=== PATIENT | male | born 1990 | race Asian ===

== ENCOUNTER 2022-03-02 10:15 | Outpatient (REF) | payer OTHER, SELFPAY ==
[2022-03-02 11:38] LABS: COVID-19 Test Positive (Negative); IDNOW Serial# 16C4AD1C
== END 2022-03-02 10:16 | disposition home or self-care (01) ==
LOC: HO.LAB 10:15
PROVIDERS: Visit Provider Internal Medicine
DX: Z20.822 Contact with and (suspected) exposure to COVID-19 (principal)
CPT/HCPCS: 87635; C9803

== ENCOUNTER 2024-03-17 19:34 | Emergency (ER) | payer OTHER, SELFPAY ==
--- NOTE | 2024-03-17 | ECG_ITS ---
Test Reason : ABD PAIN Blood Pressure : / mmHG Vent. Rate : 051 BPM Atrial Rate : 051 BPM P-R Int : 162 ms QRS Dur : 100 ms QT Int : 492 ms P-R-T Axes : 033 056 051 degrees QTc Int : 453 ms Sinus bradycardia Otherwise normal ECG No previous ECGs available Referred By: Camelia Carrillo Electronically Signed By:KARYN CARRILLO
--- NOTE | ~2024-03-17 | CT_ITS ---
EXAMINATION: CT ABDOMEN AND PELVIS WITH CONTRAST CLINICAL INFORMATION: Pain. COMPARISON: None available. TECHNIQUE: Multidetector volumetric images were obtained from the superior aspect of the liver through the pubic symphysis following administration 85 mL of Omnipaque 350 intravenous contrast. Sagittal and coronal reformatted images were obtained on the technologist's workstation. Oral contrast: No This CT examination was performed using dose optimization techniques as appropriate, variously including the following: *Automated exposure control *Adjustment of mA and/or kV according to patient size (this includes techniques or standardized protocols for targeted exams where dose is matched to indication/reason for exam; i.e. extremities or head) *Use of iterative reconstruction technique DLP: 524 mGy-cm FINDINGS: LUNG BASES: The visualized lung bases are unremarkable. LIVER, GALLBLADDER, AND BILIARY TREE: The liver is normal in size, shape, and attenuation. No focal hepatic lesion or biliary ductal dilatation is present. A single small gallstone is noted within a nondistended gallbladder. PANCREAS: Unremarkable. SPLEEN: Unremarkable. ADRENAL GLANDS: Unremarkable. KIDNEYS AND URETERS: The kidneys are normal in size, shape, and attenuation. There is right perinephric stranding/fluid. There is mild right hydronephrosis and hydroureter extending into the pelvis to the level of a 3.5 to 4 mm distal right ureteric calculus. BLADDER: Unremarkable. GASTROINTESTINAL TRACT: The small and large bowel are unremarkable. The appendix is unremarkable. ABDOMINAL WALL: No significant hernia is appreciated. LYMPH NODES: Normal. VASCULAR: Unremarkable. PELVIC VISCERA: Unremarkable. OSSEOUS STRUCTURES: Unremarkable. CT/CT abdomen pelvis w IV con IMPRESSION: 1. There is a 3.5 to 4 mm distal right ureteric calculus with associated mild right hydronephrosis and hydroureter. 2. Cholelithiasis. Fleischner guidelines were followed. Electronically signed by: John Goldstein MD 03/18/2024 12:43 AM EDT
[2024-03-17 19:39] VITALS: BP 170/88; PULSE 55
[2024-03-17 19:41] VITALS: BP 170/88; PULSE 58; RESP 17; TEMP 36.4; O2SAT 100
[2024-03-17 19:43] VITALS: BMI 29.2
--- NOTE | 2024-03-17 19:49 | ED.ABDPAIN ---
HPI - Abdominal Pain General Chief Complaint: Abdominal Pain Stated Complaint: RLQ pain 04/03 n/v Time Seen by Provider: 03/17/24 19:40 Source: patient and EMS Mode of arrival: EMS Limitations: no limitations History of Present Illness ED Provider: BEKA HPI narrative: 33 yo male with no PMH and no prior surgeries started with RLQ pain and then an hour or so later started to vomit. No diarrhea. He feels terrible. States this has never happened before. He denies food exposures or sick contacts. He was found to be bradycardic and diaphoretic by EMS. He denies fevers. No issues or change with urination MD elicited complaint: abdominal pain Pertinent past history: none Onset (ago): day(s) (4pm today) Pain Consistency: constant Location: RLQ Severity: severe Quality: stabbing Radiation: none Migration to: no migration Exacerbating factors: movement Relieving factors: nothing Associated symptoms: nausea, vomiting and chills Related Data Previous Rx's ?Medication ?Instructions ?Recorded morphine 15 mg immediate release 15 mg PO Q4-6H PRN pain #18 tabs 03/18/24 tablet ondansetron 4 mg disintegrating 4 mg PO Q8H PRN nausea and 03/18/24 tablet vomiting #20 tabs tamsulosin 0.4 mg capsule 0.4 mg PO DAILY 7 days #7 caps 03/18/24 Allergies Allergy/AdvReac Type Severity Reaction Status Date / Time No Known Allergies Allergy Verified 03/17/24 19:46 Review of Systems Review of Systems Constitutional : No Weight loss, No Fever, No Chills ENT/Mouth : No sore throat, No Rhinorrhea Eyes: No Swelling, No Redness Cardiovascular : No Chest Pain, No SOB, No Edema Respiratory : No Cough, No Sputum, No Wheezing Gastrointestinal : Positive Nausea, Positive Vomiting, no Diarrhea, positive abdominal Pain, No Hematochezia, No Melena Genitourinary : No Dysuria, No Urinary Frequency, No Hematuria, No Urgency Musculoskeletal : No joint pain, No Myalgias, No Joint Swelling Skin : No Skin Lesions, No rash Neuro : No Weakness, No Numbness, No Dizziness, No Headache Psych : No Anxiety/Panic, No Depression All other systems reviewed and are negative. [facility] Past Medical History Attestation statement: The following information was validated with the patient. Source: old records reviewed Medical History (Updated 03/18/24 @ 01:36 by Camelia Carrillo DO) No pertinent past medical history Social History Social History Smoked in Last 30 Days: No Use of substances other than those prescribed or required for medical reasons: Yes Substance Use Type: Marijuana Substance Use Frequency: Chronic Longstanding Advance Directives: No Advance Directives Information Provided: No Do you have a plan to hurt others: No Plan Physical Exam ED Vital Signs: Vital Signs - 24 hr 03/17/24 19:41 03/17/24 21:24 03/17/24 21:57 Temperature 97.5 F 97.5 F 98.1 F Pulse Rate 58 62 76 Respiratory Rate 17 16 29 H Blood Pressure 170/88 H 149/76 H 162/89 H Pulse Oximetry 100 98 96 Oxygen Delivery Method Room Air Room Air Room Air 03/17/24 22:16 03/17/24 22:38 Temperature 97.9 F 97.9 F Pulse Rate 62 64 Respiratory Rate 17 17 Blood Pressure 169/88 H 143/93 H Pulse Oximetry 98 98 Oxygen Delivery Method Room Air Room Air BMI result Body Mass Index 29.2 Appearance: Alert. Oriented X3. appears ill and uncomfortable mild acute distress. Eyes: Pupils equal, round and reactive to light. ENT: Pharynx dry MM Neck: Normal inspection. Neck supple. CVS: Normal heart rate and rhythm. Pulses normal. Respiratory: No respiratory distress. Breath sounds normal. Abdomen: Soft and moderate RLQ no rebound Skin: Skin cool and clammy. pale skin color. Extremities: No lower extremity edema. Neuro: Oriented X 3. No motor deficit. No sensory deficit. Course Course Course Narrative: possible infection suspected IV ceftriaxone ordered 916pm Medical Decision Making Medical Decision Making MDM Narrative: 33 yo male with no sig PMH here with c/o RLQ pain n/v no diarrhea at this time will need labs, CT scan for RLQ pain, IVF x 2L, IV toradol and morphine for pain. He denies travel or food exposures. Possible renal colic vs appendicitis Differential Diagnosis Differential Diagnoses: The differential diagnosis associated with the presentation includes renal colic, colitis, appendicitis, THC induced hyperemesis syndrome Admission/Observation Consideration of admission/observation: Escalation of care including admission/observation considered tolerating PO pain resolved after medications at this time stable for DC Lab Data MDM Lab Attestation statement: I reviewed the patient's lab results. 03/17/24 19:52 03/17/24 19:52 Labs: Lab Results 03/17/24 03/17/24 03/17/24 Range/Units 19:52 20:48 23:01 WBC 16.2 H (4.8-10.8) X10*3/uL RBC 5.41 (4.60-5.80) X10*6/uL Hgb 16.2 (14.0-18.0) g/dl Hct 46.5 (42.0-52.0) % MCV 86.0 (80.0-98.0) fL MCH 29.9 (27.0-33.0) pg MCHC 34.8 (31.0-36.0) g/dl RDW 13.0 (11.0-16.0) % Plt Count 326 (160-400) X10*3/uL MPV 9.3 L (9.4-12.4) fL Immature Gran % (Auto) 0.4 (0.0-0.4) % Neut % (Auto) 88.4 H (45-73) % Lymph % (Auto) 7.9 L (20-40) % Lee % (Auto) 2.9 (2-11) % Eos % (Auto) 0.0 (0-4) % Baso % (Auto) 0.4 (0-2) % Lymph # (Auto) 1.3 (1.2-4.9) X10*3/uL Lee # (Auto) 0.5 (0.1-1.2) X10*3/uL Eos # (Auto) 0.0 (0.0-0.4) X10*3/uL Baso # (Auto) 0.1 (0.0-0.2) X10*3/uL Abs Immat Gran (auto) 0.07 H (0.00-0.03) X10*3/uL Absolute Neuts (auto) 14.4 H (2.0-8.3) x10*3/uL Absolute Nucleated RBC 0.000 (0.0-0.012) X10*3/uL Nucleated RBC % (auto) 0.0 (0.0-0.2) /100WBC Sodium 139 (135-145) mmol/L Potassium 3.5 (3.3-5.1) mmol/L Chloride 107 (96-108) mmol/L Carbon Dioxide 19 L (22-29) mmol/L Anion Gap 17 (12-20) BUN 11 (9-16) mg/dL Creatinine 1.43 H (0.5-1.4) mg/dL Estim Creat Clear Calc 76.3 Estimated GFR 57 Random Glucose 141 H (60-115) mg/dL Lactic Acid 2.2 H* (0.5-2.0) mmol/L Lactic Acid F/U @ 2Hr 1.1 (0.5-2.0) mmol/L Calcium 9.8 (8.4-10.2) mg/dL Magnesium 1.9 (1.6-2.6) mg/dL Total Bilirubin 0.8 (0.0-1.0) mg/dL Direct Bilirubin 0.2 (0.0-0.5) mg/dL AST 22 (5-37) U/L ALT 24 (0-40) U/L Alkaline Phosphatase 70 (39-117) U/L Total Protein 7.7 (6.5-8.0) g/dL Albumin 4.7 (3.5-5.0) g/dL Lipase 14 (8-78) U/L Urine Color Yellow Urine Appearance Clear Urine pH 7.0 (5.0-9.0) Ur Specific [place] 1.010 (1.005-1.025) Urine Protein Negative (Neg-Trace) mg/dL Urine Glucose (UA) Negative (Negative) mg/dL Urine Ketones 40 (Negative) mg/dL Urine Blood Large (3+) H (Negative) Urine Nitrite Negative (Negative) Ur Leukocyte Esterase Negative (Negative) Urine RBC >20 H (0-2) /HPF Urine WBC 0-5 (0-5) /HPF Ur Squamous Epith Cells 0-2 (0-2) /HPF Urine Bacteria None Seen (None Seen) Hyaline Casts 0-2 (0-2) /LPF Independent Interpretation I performed an independent interpretation of an: EKG and CT Scan (+ distal ureter stone) Interpretation: Rate: 51 Rhythm: sinus bradycardia [place]: normal Normal P waves. Normal ALFREDO. Normal QRS complex. ST T wave : normal no CHELLY qTC: 453 prior studies: no acute ischemia The study has been interpreted contemporaneously by me. . Radiology Impression Discussion of test interpretation with radiology: I have reviewed the radiologist's reading. Prescription Management I considered prescription management with: Pain Medication and Other Medications Administered Discontinued Medications Generic Name Dose Route Start Last Admin Trade Name Freq PRN Reason Stop Dose Admin Diphenhydramine HCl 25 mg 03/17/24 20:34 03/17/24 20:49 Diphenhydramine Hcl 50 Mg/Ml Vial IVPUSH 03/17/24 20:35 25 mg ONCE ONE Administration Hydromorphone HCl 1 mg 03/17/24 21:46 03/17/24 21:55 Hydromorphone Hcl 1 Mg/Ml Syringe IVPUSH 03/17/24 21:47 1 mg ONCE ONE Administration Protocol Sodium Chloride 1,000 mls @ 999 mls/hr 03/17/24 19:48 03/17/24 22:00 Ns IV 03/17/24 20:48 Infused .Q1H1M ONE Infusion Sodium Chloride 1,000 mls @ 999 mls/hr 03/17/24 19:53 03/17/24 22:00 Ns IV 03/17/24 20:53 Infused .Q1H1M ONE Infusion Ceftriaxone Sodium 1 gm/ 50 mls @ 100 mls/hr 03/17/24 21:16 03/17/24 22:01 Sodium Chloride IV 03/17/24 21:45 Infused ONCE ONE Infusion Iohexol 85 ml 03/17/24 22:17 03/17/24 22:18 Iohexol 350 Mg/Ml 100 Ml Infus..Btl IV 03/17/24 22:18 85 ml ONCE ONE Administration Metoclopramide HCl 10 mg 03/17/24 20:34 03/17/24 20:49 Metoclopramide Hcl 10 Mg/2 Ml Vial IVPUSH 03/17/24 20:35 10 mg ONCE ONE Administration Morphine Sulfate 4 mg 03/17/24 19:53 03/17/24 20:06 Morphine Sulfate 4 Mg/Ml Cartridge IVPUSH 03/17/24 19:54 4 mg ONCE ONE Administration Protocol Ondansetron HCl 4 mg 03/17/24 19:53 03/17/24 20:06 Ondansetron Hcl 4 Mg/2 Ml Vial IVPUSH 03/17/24 19:54 4 mg ONCE ONE Administration Critical Care Time Critical Care Time Critical Care Time: Yes Total Critical Care Time: 60 Attestation: repeat labs, IV dilaudid and morphine with improvement in pain, IVF x 2L I attest to this time spent taking care of the patient Discharge Plan Discharge Clinical Impression: Abdominal pain, Ureterolithiasis, Acute dehydration Patient Disposition: Home, Self-Care Instructions: Dehydration (ED), Abdominal Pain (ED), Ureteral Stones (ED) Additional Instructions: stay hydrated drink plenty of fluids. if you feel you have not passed stone in 48 hours call to schedule appointment with urologist return for fevers, vomiting, severe pain or any other concerns CT/CT abdomen pelvis w IV con IMPRESSION: 1. There is a 3.5 to 4 mm distal right ureteric calculus with associated mild right hydronephrosis and hydroureter. 2. Cholelithiasis. Prescriptions: New tamsulosin 0.4 mg capsule 0.4 mg PO DAILY 7 Days Qty: 7 0RF morphine 15 mg tablet 15 mg PO Q4-6H PRN (Reason: pain) Qty: 18 0RF Rx Instructions: partial fill okay; Partial Fill upon patient request. ondansetron 4 mg tablet,disintegrating 4 mg PO Q8H PRN (Reason: nausea and vomiting) Qty: 20 0RF Referrals: [facility] [Provider Group] Print Language: Congolese
[2024-03-17 19:56] LABS: MANUAL DIFF FLAG NO
[2024-03-17 19:58] LABS: Basophils Absolute Auto 0.1 X10*3/uL (0.0-0.2); Basophils Percent Auto 0.4 % (0-2); Hematocrit 46.5 % (42.0-52.0); Hemoglobin 16.2 g/dl (14.0-18.0); Imm Gran Abs Auto 0.07 X10*3/uL (0.00-0.03); Imm Gran Pct Auto 0.4 % (0.0-0.4); Lymphocytes Absolute Auto 1.3 X10*3/uL (1.2-4.9); Lymphocytes Percent Auto 7.9 % (20-40); Mean Corpuscular HGB Conc 34.8 g/dl (31.0-36.0); Mean Corpuscular Hemoglobin 29.9 pg (27.0-33.0); Mean Platelet Volume 9.3 fL (9.4-12.4); Monocytes Absolute Auto 0.5 X10*3/uL (0.1-1.2); Monocytes Percent Auto 2.9 % (2-11); Neutrophils Absolute Auto 14.4 x10*3/uL (2.0-8.3); Neutrophils Percent Auto 88.4 % (45-73); Platelet Count 326 X10*3/uL (160-400); Red Blood Count 5.41 X10*6/uL (4.60-5.80); White Blood Count 16.2 X10*3/uL (4.8-10.8)
[2024-03-17] MEDS: 0.9 % Sodium Chloride 1,000 ML 999 ML IV ×2 (19:59→20:06)
--- OUTSIDE RECORDS SUMMARY | 2024-03-17 20:04 | XMS_ITS | Continuity of Care Document ---
Author Organization [facility] Fredi Address [address] [place] [address]- Care Team Providers Care Crane Rigger Name Role Phone Justin ALPHONSO, Bita Swift Primary Care Physician Encounter [facility] [place] Date(s): 11/15/20 - 12/15/20 [facility] Adult [address] [place] [address]- Allergies, Adverse Reactions, Alerts Substance Reaction Severity Status NKA Active Immunizations Given and Recorded Vaccine Date Status Refusal Reason SARS-CoV-2 (COVID-19) mRNA BNT-162b2 vac 10/31/20 Recorded SARS-CoV-2 (COVID-19) mRNA BNT-162b2 vac 10/08/20 Recorded influenza virus vaccine, inactivated 04/12/17 Kevin rded tetanus/diphtheria/pertussis, acel(Tdap) 09/22/14 Given Medications FLUoxetine 20 mg oral capsule 3, capsule, By Mouth, Daily, # 270 capsule, Refills 0, Tot. Refills 0, Maintenance, 10/14/20 11:41:00 EDT, Route to Pharmacy Electronically, [facility]/pharmacy #[id number], 170.5, cm, 09/24/20 9:20:00 EDT, Height Start Date: 10/14/20 Stop Date: 01/12/21 Status: Ordered Wellbutrin XL 150 mg/24 hours oral tablet, extended release 1 tablet = 150 mg, By Mouth, Every 24 hours, # 90 tablet, 3 Refills, Maintenance, 01/19/20 7:17:00 EDT, ER Tablet, [facility]/pharmacy #[id number], 170.5, cm, 01/19/20 7:04:00 EDT, Height Start Date: 01/19/20 Status: Ordered Problem List Condition Effective Dates Status Health Status Inform ant Overweight (BMI 25.0-29.9)(Confirmed) Active History of vitamin D deficiency(Confirmed) Active Anxiety and depression(Confirmed) Active Social History Social History Type Response Smoking Status Never smoker; Tobacc o user in household: No entered on: 01/14/14 Sex
--- OUTSIDE RECORDS SUMMARY | 2024-03-17 20:04 | XMS_ITS | Continuity of Care Document ---
Author Organization [facility] Fred[facility] Address [address] [place] [address]- Care Team Providers Care Chef De Froid Name Role Phone Justin ALPHONSO, Bita Swift Primary Care Physician [phone] [place] [facility] [place]20 [facility] Adult [address] [place] [address]- Allergies, Adverse Reactions, Alerts Substance Reaction Severity Status NKA Active Immunizations Given and Recorded Vaccine Date Status Refusal Reason influenza virus vaccine, inactivated 04/12/17 Kevin rded tetanus/diphtheria/pertussis, acel(Tdap) 09/22/14 Given Medications FLUoxetine 20 mg oral capsule 3, capsule, By Mouth, Daily, # 270 capsule, Refills 0, Tot. Refills 0, Maintenance, 10/14/20 11:41:00 EDT, Route to Pharmacy Electronically, [facility]/pharmacy #[id number], 170.5, cm, 09/24/20 9:20:00 EDT, Height Start Date: 10/14/20 Stop Date: 01/12/21 Status: Ordered Wellbutrin XL 150 mg/24 hours oral tablet, extended release 1 tablet = 150 mg, By Mouth, Every 24 hours, # 90 tablet, 3 Refills, Maintenance, 01/19/20 7:17:00 EDT, ER Tablet, [facility]/pharmacy #[id number], 170.5, cm, 01/19/20 7:04:00 EDT, Height Start Date: 01/19/20 Status: Ordered Problem List Condition Effective Dates Status Health Status Inform ant Overweight (BMI 25.0-29.9)(Confirmed) Active History of vitamin D deficiency(Confirmed) Active Anxiety and depression(Confirmed) Active Social History Social History Type Response Smoking Status Never smoker; Tobacc o user in household: No entered on: 01/14/14 Sex
--- OUTSIDE RECORDS SUMMARY | 2024-03-17 20:04 | XMS_ITS | Continuity of Care Document ---
Author Organization [facility] Fredi Address [address] [place] [address]- Care Team Providers Care Sales Support Engineer Name Role Phone Justin WERNER, Bita Swift Primary Care Physician Encounter [facility] [place] Date(s): 08/08/23 - 08/15/23 [facility] Adult [address] [place] [address]- Encounter Diagnosis Annual physical exam(Discharge Diagnosis) - 08/07/23 Anxiety and depression(Discharge Diagnosis) - 08/07/23 History of vitamin D deficiency(Discharge Diagnosis) - 08/07/23 Overweight (BMI 25.0-29.9)(Discharge Diagnosis) - 08/07/23 Attending Physician: Bita Anderson NP Referring Physician: Odell Askew MD Allergies, Adverse Reactions, Alerts No Known Allergies Immunizations Given and Recorded Vaccine Date Status Refusal Reason [id number] 12y+ bivalent booster vax 1 08/07/22 Given influenza virus vaccine, inactivated 2 08/07/22 Gi otf influenza virus vaccine, inactivated 04/12/17 Kevin rded SARS-CoV-2 (COVID-19) mRNA BNT-162b2 vac 10/31/20 Recorded SARS-CoV-2 (COVID-19) mRNA BNT-162b2 vac 10/08/20 Recorded tetanus/diphtheria/pertussis, acel(Tdap) 09/22/14 Given 1Result Comment: COVID [facility]#[id number] 2Result Comment: Flu [facility]#[id number] Medications buPROPion 150 mg/24 hours (XL) oral tablet, extended release 1 tablet = 150 mg, By Mouth, Daily, # 90 tablet, 1 Refills, Maintenance, 08/08/23 10:30:00 EST, [facility] #[id number], 1 tablet By Mouth Daily,x90 days, 170.6, cm, 08/08/23 10:18:00 EST, Height Start Date: 08/08/23 Stop Date: 02/04/24 Status: Ordered FLUoxetine 20 mg oral capsule 60 mg, 3, capsule, By Mouth, Daily, Refills 0, Maintenance, 08/07/23 23:38:00 EST, Partial fill upon patient request if the prescription is for a schedule II opioid drug. Start Date: 08/07/23 Status: Ordered Multivitamin Daily, 0 Refills, Maintenance, 05/10/21 8:15:00 EST Start Date: 05/10/21 Status: Ordered Vitamin D3 5000 intl units oral tablet 1 tablet = 125 mcg, By Mouth, Daily, # 90 tablet, 3 Refills, Maintenance, 08/08/22 6:58:00 EST, Tablet, [facility]/pharmacy #[id number], 172.3, cm, 08/07/22 10:13:00 EST, Height Start Date: 08/08/22 Stop Date: 08/03/23 Status: Ordered Problem List Condition Confirmation Course Effective Dates Status Health St atus Informant Overweight (BMI 25.0-29.9) Confirmed Active History of vitamin D deficiency Confirmed Active Anxiety and depression Confirmed Active Diagnosis Diagnosis Type Effective Dates Health Status Clinical Service Informant Annual physical exam Discharge Diagnosis 08/07/23 Anxiety and depression Discharge Diagnosis 08/07/23 History of vitamin D deficiency Discharge Diagnosis 08/07/23 Overweight (BMI 25.0-29.9) Discharge Diagnosis 08/07/23 Vital Signs Most recent to oldest [Reference Range]: 1 2 Height 170.6 cm (08/08/23 10:30 AM) 170.6 cm (08/08/23 10:18 AM) Weight 82.5 kg (08/08/23 10:18 AM) Oxygen Saturation [94-100 %] 98 % (08/08/23 10:18 AM) Pulse Rate [55-90 bpm] 78 bpm (08/08/23 10:18 AM) Body Mass Index [18.5-24.99 kg/m2] 28.35 kg/m2 *H* (08/08/23 10:18 AM) Blood Pressure [90-138/55-84 mm Hg] 122/ 80mm Hg (08/08/23 10:30 AM) 123/85mm Hg (08/08/23 10:18 AM) Temperature [96.8-100.4 DegF] 97.7 DegF (08/08/23 10:18 AM) Mode of Delivery (Oxygen) Room air (08/08/23 10:18 AM) Blood pressure sites Arm, left (08/08/23 10:30 AM) Arm, left (08/08/23 10:18 AM) Temperature Route Oral (08/08/23 10:18 AM) Weight Obtained Via Standing scale (08/08/23 10:18 AM) Social History Social History Type Response Smoking Status Never smoker; Tobacc o user in household: No entered on: 01/14/14 Sex Note * Avril Bender: PERFORM, SIGN, VERIFY Event Display: Patient Education/Instruction Authored Date: [id number] [facility] *[facility] So Cristopher Ramos Clinical Summary Name TIFFANIE CHAVEZ Age 33 Years 1990 [facility]CP [id number] Visit Date 08/08/2023 10:14:00 Additional Instructions: Scheduled Appointments?? Future Appointments ?No Future Appointments Scheduled Follow-Up Instructions ?? With: Address: When: Bita Anderson NP In 1 year Diagnosis Encounter for general adult medical examination without abnormal findings; Overweight; Personal history of other endocrine, nutritional and metabolic disease; Other specified anxiety disorders Medications: Please continue your medications until treatment is completed or stopped by your provider. Discuss any questions related to medications with your provider. New Medications [facility] #[id number], [address], [place] [id number], [phone] BuPROpion (buPROPion 150 mg/24 hours (XL) oral tablet, extended release) 1 tab(s) Oral Daily for 90Days. Refills: 1. Next Dose: Medications to Continue Taking That Have Changed These medications were not printed or sent to your pharmacy - Fluoxetine (FLUoxetine 20 mg oral capsule) 3 capsule Oral Daily. Next Dose: Medications to Continue with No Changes These medications were not printed or sent to your pharmacy Cholecalciferol (Vitamin D3 5000 intl units oral tablet) 1 tab(s) Oral Daily for 90 Days. Refills: 3. Next Dose: Multivitamin Daily. Next Dose: Allergy Info:?? NKA Medications Given This Visit Future Orders ?Vitamin D 25 Hydroxy Level? Order Date:08/08/23?- Complete on or after?08/08/23 ?Comprehensive Metabolic Panel? Order Date:08/08/23?- Complete on or after?08/08/23 ?Direct LDL? Order Date:08/08/23?- Complete on or after?08/08/23 Vital Signs Height 170.6 cm Weight 82.5 kg BMI 28.35 kg/m2 Blood Pressure 123 mm Hg/85 mm Hg Temperature 97.7 DegF Pulse Rate 78 bpm Respiratory Rate 02 Sat Mode of Delivery 98 %/Room air You can now view a summary of your hospital visit from the comfort of your home through a free online portal called [employer]. [employer] is a website that allows you to securely view your medical information including discharge summary, medications and follow-up visits. ??You can alsosend a secure electronic message to your doctor???s office to request appointments, renew medications or just ask a question. You can enroll at [email or web address] or register during your next office visit. Disclaimer:?? The information provided is of a general nature and is intended to be used in conjunction with the recommendations and advice of your health care practitioner. ??Every effort has been made to ensure that the information provided is accurate and complete at the time it is provided to you however, as your needs change, or, as new ??information becomes available, different or additional instructions may be required. If you have questions, please consult with your primary care provider or pharmacist, as appropriate. ??This information is not intended to serve as substitution for assessment and evaluation by a qualified health care provider. If you do not have a primary care provider, you may find a [facility] provider by calling [facility] at [phone]. [facility], in keeping with [facility] guidance, no longer requires face masks for staff, patientsor visitors in most situations. Similar to time spent indoors at other locations, there is the chance that you were exposed to respiratory viruses during your time with us (such as flu or COVID-19).? If you develop symptoms concerning for a viral respiratory infection, please seek testing (and treatment if indicated) from your medical provider or home test kit. For information about the plan of care including goals and instructions for your diagnosis, please see the patient education orders section of this document. Patient Education Materials?? The content of this educational material or handout may have been modified, supplemented, or adapted from its original content and format to support your individualized medical care. Prevention Guidelines, Men Ages 18 to 39 Screening tests and vaccines are an important part of managing your health. Health counseling is essential, too. Below are guidelines for these, for men ages 18 to 39. Talk with your healthcare provider to make sure you???re up-to-date on what you need. Screening Who needs it How often Alcohol misuse All men in this age group At routine exams Blood pressure All men in this age group Every 2 years if your blood pressure is less than 120/80 mm Hg; yearly if your systolic blood pressure is 120 to 139 mm Hg, or your diastolic blood pressure reading is 80 to 89 mm Hg Depression All men in this age group At routine exams Diabetes mellitus, type 2 Adults who have no symptoms but are overweight or obese and have 1 or more other risk factors for diabetes At least every 3 years Hepatitis C If at increased risk At routine exams High cholesterol or triglycerides All men ages 35 and older, and younger men at high risk for coronary artery disease At least every 5 years HIV All men At routine exams Obesity All men in this age group At routine exams Syphilis Men at increased risk for infection ??? talk with your healthcare provider At routine exams Tuberculosis Men at increased risk for infection ??? talk with your healthcare provider Check with your healthcare provider Vision All men in this age group Every 5 to 10 years if no risk factors for eye disease Vaccines1 Who needs it How often Chickenpox (varicella) All men in this age group who have no record of this infection or vaccine 2 doses; the second dose should be given at least 4 weeks after the first dose Hepatitis A Men at increased risk for infection ??? talk with your healthcare provider 2 doses given at least 6 months apart Hepatitis B Men at increased risk for infection ??? talk with your healthcare provider 3 doses over 6 months; second dose should be given 1 month after the first dose; the third dose should be given at least 2 months after the second dose and at least 4 months after the first dose Haemophilus influenzae Type B (HIB) Men at increased risk for infection ??? talk with your healthcare provider 1 to 3 doses Human papillomavirus (HPV4) All men through age 21 years Men ages 22 to 26 who are at risk 3 doses; the second dose should be given 1 to 2 months after the first dose and the third dose given 6 months after the first dose Influenza (flu) All men in this age group Once a year Measles, mumps, rubella (MMR) All men in this age group who have no record of these infections or vaccines 1 or 2 doses through age 55 Meningococcal Men at increased risk for infection ??? talk with your healthcare provider 1 or more doses Pneumococca (PCV13) and Pneumococcal (PPSV23) Men at increased risk for infection ??? talk with your healthcare provider PCV13: 1 dose ages 19 to 65 (protects against 13 types of pneumococcal bacteria) PPSV23: 1 to 2 doses through age 64, or 1 dose at 65 or older (protects against 23 types of pneumococcal bacteria) Tetanus/diphtheria/pertussis (Td/Tdap) booster All men in this age group A one-time Tdap booster after age 18, then Td every10 years Counseling Who needs it How often Diet and exercise Overweight or obese people When diagnosed, and then at routine exams Use of tobacco and the health affects it can cause All men in this age group Every visit Sexually transmitted infection prevention Men who are sexually active At routine exams Skin cancer Prevention of skin cancer in fair-skinned adults through age 24 At routine exams 1Those who are 18 years of age, who are not up-to-date on their childhood immunizations, should receive all appropriate catch-up vaccines recommended by the CDC. ?? 5024-1544 [employer]. [address] [place] [address], [place] [address]. All rights reserved. This information is not intended as a substitute for professional medical care. Always follow your healthcare professional's instructions. Patient Care team information Care Team Personnel Name: Bita Anderson NP Position: [facility] Associate Professional Member Role: PCP Address: Address: [address] [place] [address]- Care Team Related Persons Name: ISAIAH WOLFF Address: [address] [address]
--- OUTSIDE RECORDS SUMMARY | 2024-03-17 20:04 | XMS_ITS | Continuity of Care Document ---
Author Organization [facility] Fredi Address [address] [place] [address]- Care Team Providers Care Magazine Repairer Name Role Phone Justin ALPHONSO, Bita Swift Primary Care Physician [phone] Encounter [facility] [place] Date(s): 09/24/20 - 10/24/20 [facility] Adult [address] [place] [address]- Allergies, Adverse Reactions, Alerts Substance Reaction Severity Status NKA Active Immunizations Given and Recorded Vaccine Date Status Refusal Reason influenza virus vaccine, inactivated 04/12/17 Kevin rded tetanus/diphtheria/pertussis, acel(Tdap) 09/22/14 Given Medications FLUoxetine 20 mg oral capsule 3, capsule, By Mouth, Daily, # 270 capsule, Refills 0, Tot. Refills 0, Maintenance, 10/14/20 11:41:00 EDT, Route to Pharmacy Electronically, [facility]/pharmacy #[id number], 170.5, cm, 09/24/20 9:20:00 EDT, Height Start Date: 10/14/20 Stop Date: 01/12/21 Status: Ordered Wellbutrin XL 150 mg/24 hours oral tablet, extended release 1 tablet = 150 mg, By Mouth, Every 24 hours, # 90 tablet, 3 Refills, Maintenance, 01/19/20 7:17:00 EDT, ER Tablet, [facility]/pharmacy #[id number], 170.5, cm, 01/19/20 7:04:00 EDT, Height Start Date: 01/19/20 Status: Ordered Problem List Condition Effective Dates Status Health Status Inform ant Overweight (BMI 25.0-29.9)(Confirmed) Active History of vitamin D deficiency(Confirmed) Active Anxiety and depression(Confirmed) Active Social History Social History Type Response Smoking Status Never smoker; Tobacc o user in household: No entered on: 01/14/14 Sex
--- OUTSIDE RECORDS SUMMARY | 2024-03-17 20:04 | XMS_ITS | Continuity of Care Document ---
Author Organization [facility] Cristopher Fredi Address [address] [place] [address]- Care Team Providers Care Business Performance Specialist Name Role Phone Justin WELFARE ADMINISTRATOR, Bita Swift Primary Care Physician [phone] Encounter [facility] Date(s): 01/03/24 - 02/02/24 [facility] Adult [address] [place] [address]- Allergies, Adverse Reactions, Alerts No Known Allergies Immunizations Given and Recorded Vaccine Date Status Refusal Reason [id number] 12y+ bivalent booster vax 1 08/07/22 Given influenza virus vaccine, inactivated 2 08/07/22 Gi otf influenza virus vaccine, inactivated 04/12/17 Kevin rded SARS-CoV-2 (COVID-19) mRNA BNT-162b2 vac 10/31/20 Recorded SARS-CoV-2 (COVID-19) mRNA BNT-162b2 vac 10/08/20 Recorded tetanus/diphtheria/pertussis, acel(Tdap) 09/22/14 Given 1Result Comment: COVID [facility]#[id number] 2Result Comment: Flu [facility]#[id number] Medications buPROPion 150 mg/24 hours (XL) oral tablet, extended release 1 tablet, By Mouth, Daily, # 90 tablet, 1 Refills, Maintenance, 01/03/24 11:49:00 EDT, [facility] #[id number], 90, TAKE 1 TABLET BY MOUTH DAILY, 170.6, cm, 08/08/23 10:40:00 EST, Height Start Date: 01/03/24 Status: Ordered FLUoxetine 20 mg oral capsule 60 mg, 3, capsule, By Mouth, Daily, # 90 capsule, Refills 1, Tot. Refills 1, Maintenance, 01/24/24 12:04:00 EDT, Route to Pharmacy Electronically, [facility] #[id number], 170.6, cm, 08/08/23 10:40:00 EST, Height Start Date: 01/24/24 Status: Ordered Multivitamin Daily, 0 Refills, Maintenance, 05/10/21 8:15:00 EST Start Date: 05/10/21 Status: Ordered Vitamin D3 5000 intl units oral tablet 1 tablet = 125 mcg, By Mouth, Daily, # 90 tablet, 3 Refills, Maintenance, 08/08/22 6:58:00 EST, Tablet, [facility]/pharmacy #[id number], 172.3, cm, 08/07/22 10:13:00 EST, Height Start Date: 08/08/22 Stop Date: 08/03/23 Status: Ordered Problem List Condition Confirmation Course Effective Dates Status Health St atus Informant Overweight (BMI 25.0-29.9) Confirmed Active History of vitamin D deficiency Confirmed Active Anxiety and depression Confirmed Active Social History Social History Type Response Smoking Status Never smoker; Tobacc o user in household: No entered on: 01/14/14 Sex Patient Care team information Care Team Personnel Name: Bita Anderson NP Position: [facility] Associate Professional Member Role: PCP Address: Address: [address] [place] [address]- Care Team Related Persons Name: ISAIAH WOLFF Address: home [address] [place] [address]
--- OUTSIDE RECORDS SUMMARY | 2024-03-17 20:04 | XMS_ITS | Continuity of Care Document ---
Author Organization [facility] Fredi Address [address] [place] [address]- Care Team Providers Care Elementary Science Teacher Name Role Phone Justin SALESPERSON FURNITUREBita Primary Care Physician [place] [facility] [place] Date(s): 06/28/20 - 07/28/20 [facility] Adult [address] [place] [address]- Allergies, Adverse Reactions, Alerts Substance Reaction Severity Status NKA Active Immunizations Given and Recorded Vaccine Date Status Refusal Reason influenza virus vaccine, inactivated 04/12/17 Kevin rded tetanus/diphtheria/pertussis, acel(Tdap) 09/22/14 Given Medications FLUoxetine 20 mg oral capsule 3, capsule, By Mouth, Daily, # 270 capsule, Refills 1, Tot. Refills 0, Maintenance, 05/10/20 9:55:00 EST, Route to Pharmacy Electronically, [id number], 170.5, cm, 01/19/20 7:04:00 EDT, Height Start Date: 05/10/20 Status: Ordered Wellbutrin XL 150 mg/24 hours oral tablet, extended release 1 tablet = 150 mg, By Mouth, Every 24 hours, # 90 tablet, 3 Refills, Maintenance, 01/19/20 7:17:00 EDT, ER Tablet, [facility] #[id number], 170.5, cm, 01/19/20 7:04:00 EDT, Height Start Date: 01/19/20 Status: Ordered Problem List Condition Effective Dates Status Health Status Inform ant Overweight (BMI 25.0-29.9)(Confirmed) Active History of vitamin D deficiency(Confirmed) Active Anxiety and depression(Confirmed) Active Social History Social History Type Response Smoking Status Never smoker; Tobacc o user in household: No entered on: 01/14/14 Sex
--- OUTSIDE RECORDS SUMMARY | 2024-03-17 20:04 | XMS_ITS | Continuity of Care Document ---
[facility] Address [address] [place] [address]- Care Team Providers Care Compliance Monitor Name Role Phone Justin Bita WERNER Primary Care Physician Encounter [facility] [place] Date(s): 02/17/20 - 03/18/20 [facility] Adult [address] [place] [address]- [facility] Allergies, Adverse Reactions, Alerts Substance Reaction Severity Status NKA Active Immunizations Given and Recorded Vaccine Date Status Refusal Reason influenza virus vaccine, inactivated 04/12/17 Kevin rded tetanus/diphtheria/pertussis, acel(Tdap) 09/22/14 Given Medications FLUoxetine 20 mg oral capsule 60 mg, 3, capsule, By Mouth, Daily, # 270 capsule, Refills 0, Tot. Refills 0, Maintenance, 209:15:00 EDT, Route to Pharmacy Electronically, [facility]/pharmacy #[id number], 170.5, cm, 01/19/20 7:04:00 EDT,Height Start Date: 02/23/20 Status: Ordered Wellbutrin XL 150 mg/24 hours [...]
--- OUTSIDE RECORDS SUMMARY | 2024-03-17 20:04 | XMS_ITS | Continuity of Care Document ---
Author Organization [facility] Fredi Address [address] [place] [address]- Care Team Providers Care Receiving Worker Name Role Phone Justin ALPHONSO, Bita Swift Primary Care Physician Encounter [facility] [place] Date(s): 10/27/20 - 11/26/20 [facility] Adult [address] [place] [address]- Allergies, Adverse Reactions, Alerts Substance Reaction Severity [...] 10/14/20 11:41:00 EDT, Route to Pharmacy Electronically, [facility]/pharmacy #[id number], 170.5, cm, 09/24/20 9:20:00 EDT, Height Start Date: 10/14/20 Stop Date: 01/12/21 Status: Ordered Wellbutrin XL 150 mg/24 hours oral tablet, extended release 1 tablet = 150 mg, By Mouth, Every 24 hours, # 90 tablet, 3 Refills, Maintenance, 01/19/20 7:17:00 EDT, ER Tablet, [facility]/pharmacy #[id number], 170.5, cm, 01/19/20 7:04:00 EDT, Height Start Date: 01/19/20 Status: Ordered Problem List Condition Effective Dates Status Health Status Inform ant Overweight (BMI 25.0-29.9)(Confirmed) Active History of vitamin D deficiency(Confirmed) Active Anxiety and depression(Confirmed) Active Social History Social History Type Response Smoking Status Never smoker; Tobacc o user in household: No entered on: 01/14/14 Sex
--- OUTSIDE RECORDS SUMMARY | 2024-03-17 20:04 | XMS_ITS | Continuity of Care Document ---
Author Organization [facility] ter Address [address] [place] [address]- Care Team Providers Care Weatherization Technician Name Role Phone Bita Anderson NP Primary Care Physician [phone] Encounter [facility] [place] Date(s): 08/08/23 - 08/08/[address] [address] Attending Physician: Bita Anderson NP Allergies, Adverse Reactions, Alerts No Known Allergies Immunizations Given and Recorded Vaccine Date Status Refusal Reason [id number] 12y+ bivalent booster vax 1 08/07/22 Given influenza virus vaccine, inactivated 2 08/07/22 Gi otf influenza virus vaccine, inactivated 04/12/17 Kevin rded SARS-CoV-2 (COVID-19) mRNA BNT-162b2 vac 10/31/20 Recorded SARS-CoV-2 (COVID-19) mRNA BNT-162b2 vac 10/08/20 Recorded tetanus/diphtheria/pertussis, acel(Tdap) 09/22/14 Given 1Result Comment: COVID [facility]#[id number] 2Result Comment: Flu [facility]#[id number] Medications buPROPion 150 mg/24 hours (XL) oral tablet, extended release 1 tablet = 150 mg, By Mouth, Daily, # 90 tablet, 1 Refills, Maintenance, 08/08/23 10:30:00 EST, [facility] #[id number], 1 tablet By Mouth Daily,x90 days, 170.6, [...] 3 Refills, Maintenance, 08/08/22 6:58:00 EST, Tablet, [id number], 172.3, cm, 08/07/22 10:13:00 EST, Height [...] Team Personnel Name: Bita Anderson NP Position: [facility]O Associate Professional Member Role: PCP Address: Address: [address] [place] [address]- Care Team Related Persons Name: ISAIAH WOLFF Address: home [address] [place] [address]
--- OUTSIDE RECORDS SUMMARY | 2024-03-17 20:04 | XMS_ITS | Continuity of Care Document ---
Author Organization [facility] Fredi Address [address] [place] [address]- Care Team Providers Care Charge Account Clerk Name Role Phone Justin Bita WERNER Primary Care Physician Encounter [facility] [place] Date(s): 05/10/21 - 06/09/21 [facility] Adult [address] [place] [address]- Attending Physician: Admtr, Ar8 Admitting Physician: Admtr, Ar8 Referring Physician: Admtr, Ar8 Allergies, Adverse Reactions, Alerts Substance Reaction Severity Status NKA Active Immunizations Given and Recorded Vaccine Date Status Refusal Reason SARS-CoV-2 (COVID-19) mRNA BNT-162b2 vac 10/31/20 Recorded SARS-CoV-2 (COVID-19) mRNA BNT-162b2 vac 10/08/20 Recorded influenza virus vaccine, inactivated 04/12/17 Kevin rded tetanus/diphtheria/pertussis, acel(Tdap) 09/22/14 Given Medications buPROPion 150 mg/24 hours (XL) oral tablet, extended release 1 tablet = 150 mg, By Mouth, Every 24 hours, # 90 tablet, 2 Refills, Maintenance, 05/10/21 8:17:00 EST, XL Tablet, [id number], 1 tablet By Mouth Every 24 hours,x90 days, 170.5, cm, 05/10/21 8:02:00 EST, Height Start Date: 05/10/21 Stop Date: 02/04/22 Status: Ordered FLUoxetine 20 mg oral capsule 60 mg, 3, capsule, By Mouth, Daily, # 270 capsule, Refills 2, Tot. Refills 2, Maintenance, 218:16:00 EST, Route to Pharmacy Electronically, [facility]/pharmacy #[id number], 170.5, cm, 05/10/21 8:02:00 EST,Height Start Date: 05/10/21 Stop Date: 02/04/22 Status: Ordered Multivitamin Daily, 0 Refills, Maintenance, 05/10/21 8:15:00 EST Start Date: 05/10/21 Status: Ordered Problem List Condition Effective Dates Status Health Status Inform ant Overweight (BMI 25.0-29.9)(Confirmed) Active History of vitamin D deficiency(Confirmed) Active Anxiety and depression(Confirmed) Active Social History Social History Type Response Smoking Status Never smoker; Tobacc o user in household: No entered on: 01/14/14 Sex
--- OUTSIDE RECORDS SUMMARY | 2024-03-17 20:04 | XMS_ITS | Continuity of Care Document ---
Author Organization [facility] Fredi Address [address] [place] [address]- Care Team Providers Care Analysis Specialist Name Role Phone Bita Anderson NP Primary Care Physician [phone] [place] [facility] [place]20 [place] 01/26/20 [facility] Adult [address] [place] [address]- [facility] Encounter Diagnosis Annual physical exam(Discharge Diagnosis) - 01/19/20 History of vitamin D deficiency(Discharge Diagnosis) - 01/19/20 Overweight (BMI 25.0-29.9)(Discharge Diagnosis) - 01/19/20 Attending Physician: Bita Anderson NP Allergies, Adverse Reactions, Alerts Substance Reaction Severity Status NKA Active Immunizations Given and Recorded Vaccine Date Status Refusal Reason influenza virus vaccine, inactivated 04/12/17 Kevin rded tetanus/diphtheria/pertussis, acel(Tdap) 09/22/14 Given Medications FLUoxetine 60 mg oral tablet 1 tablet, By Mouth, Daily in AM, # 90 tablet, 3 Refills, Maintenance, 01/19/20 7:17:00 EDT, [id number], 170.5, cm, 01/19/20 7:04:00 EDT, Height Start Date: 01/19/20 Status: Ordered Wellbutrin XL 150 mg/24 hours [...] D deficiency(Confirmed) Active Anxiety and depression(Confirmed) Active Diagnosis Diagnosis Type Effective Dates Health Status Clinical Service Informant Annual physical exam Discharge Diagnosis 01/19/20 History of vitamin D deficiency Discharge Diagnosis 01/19/20 Overweight (BMI 25.0-29.9) Discharge Diagnosis 01/19/20 Vital Signs Most recent to oldest [Reference Range]: 1 Height 170.5 cm (01/19/20 7:04 AM) Weight 80.5 kg (01/19/20 7:04 AM) Oxygen Saturation [94-100 %] 98 % (01/19/20 7:04 AM) Pulse Rate [55-90 bpm] 82 bpm (01/19/20 7:04 AM) Body Mass Index [18.5-24.99] 27.69 *H* (01/19/20 7:04 AM) Blood Pressure [90-138/55-84 mm Hg] 122/ 74mm Hg (01/19/20 7:04 AM) Temperature [96.8-100.4 DegF] 98.2 DegF (01/19/20 7:04 AM) Mode of Delivery (Oxygen) Room air (01/19/20 7:04 AM) Blood pressure sites Arm, left (01/19/20 7:04 AM) Temperature Route Oral (01/19/20 7:04 AM) Weight Obtained Via Standing scale (01/19/20 7:04 AM) Social History Social History Type Response Smoking Status Never smoker; Tobacc o user in household: No entered on: 01/14/14 Sex
--- OUTSIDE RECORDS SUMMARY | 2024-03-17 20:04 | XMS_ITS | Continuity of Care Document ---
Author Organization [facility] Fredi Address [address] [place] [address]- Care Team Providers Care Skewer Up Name Role Phone Justin Bita WERNER Primary Care Physician [place] [facility] [place] 05/26/21 [facility] Adult [address] [place] [address]- Allergies, Adverse Reactions, Alerts Substance Reaction Severity [...] Refills, Maintenance, 05/10/21 8:17:00 EST, XL Tablet, [facility]/pharmacy #[id number], 1 tablet By Mouth Every 24 hours,x90 days, 170.5, cm, 05/10/21 8:02:00 EST, Height Start Date: 05/10/21 Stop Date: 02/04/22 Status: Ordered FLUoxetine 20 mg oral capsule 60 mg, 3, capsule, By Mouth, Daily, # 270 capsule, Refills 2, Tot. Refills 2, Maintenance, 218:16:00 EST, Route to Pharmacy Electronically, [facility]/pharmacy #[id number], 170.5, cm, 05/10/21 8:02:00 EST,Height Start [...]
--- OUTSIDE RECORDS SUMMARY | 2024-03-17 20:04 | XMS_ITS | Continuity of Care Document ---
Author Organization [facility] Fredi Address [address] [place] [address]- Care Team Providers Care Vacuum Closing Machine Operator Name Role Phone Justin CAFE ATTENDANT, Bita Swift Primary Care Physician Encounter [facility] [place] Date(s): 06/10/19 - 06/20/19 [facility] Adult [address] [place] [address]- [facility] Attending Physician: Yisel Barcenas Admitting Physician: Yisel Barcenas Referring Physician: Yisel Barcenas Allergies, Adverse Reactions, Alerts Substance Reaction Severity Status NKA Active Immunizations Given and Recorded Vaccine Date Status Refusal Reason influenza virus vaccine, inactivated 04/12/17 Kevin rded tetanus/diphtheria/pertussis, acel(Tdap) 09/22/14 Given Medications FLUoxetine 60 mg oral tablet 1 tablet = 60 mg, By Mouth, Daily in AM, # 90 tablet, 3 Refills, Maintenance, 11/20/18 8:14:16 EDT,Tablet Start Date: 11/20/18 Status: Ordered Wellbutrin XL 150 mg/24 hours oral tablet, extended release 1 tablet = 150 mg, By Mouth, Every 24 hours, # 90 tablet, 2 Refills, Maintenance, 01/15/19 7:14:08 EDT, ER Tablet Start Date: 01/15/19 Status: Ordered Problem List Condition Effective Dates Status Health Status Inform ant Anxiety(Confirmed) Active Overweight (BMI 25.0-29.9)(Confirmed) Active History of vitamin D deficiency(Confirmed) Active Social History Social History Type Response Smoking Status Never smoker; Tobacc o user in household: No entered on: 01/14/14 Sex
--- OUTSIDE RECORDS SUMMARY | 2024-03-17 20:04 | XMS_ITS | Continuity of Care Document ---
Author Organization [facility] Fredi Address [address] [place] [address]- Care Team Providers Care Manager Technical Sales Name Role Phone Justin KIER HAND, Bita Swift Primary Care Physician Encounter [facility] Date(s): 08/09/23 - 09/08/23 [facility] Adult [address] [place] [address]- Allergies, Adverse Reactions, Alerts No Known Allergies Immunizations Given and Recorded Vaccine Date Status Refusal Reason [id number] 12y+ bivalent booster vax 1 08/07/22 Given influenza virus vaccine, inactivated 2 08/07/22 Gi otf influenza virus vaccine, inactivated 04/12/17 Kevin rded SARS-CoV-2 (COVID-19) mRNA BNT-162b2 vac 10/31/20 Recorded SARS-CoV-2 (COVID-19) mRNA BNT-162b2 vac 10/08/20 Recorded tetanus/diphtheria/pertussis, acel(Tdap) 09/22/14 Given 1Result Comment: COVID [facility]#[id number] 2Result Comment: Flu [facility]#[id number] Medications buPROPion 150 mg/24 hours (XL) oral tablet, extended release 1 tablet = 150 mg, By Mouth, Daily, # 90 tablet, 1 Refills, Maintenance, 08/08/23 10:30:00 EST, [facility] #[id number], 1 tablet By Mouth Daily,x90 days, 170.6, [...] 3 Refills, Maintenance, 08/08/22 6:58:00 EST, Tablet, [facility]/pharmacy #[id number], 172.3, cm, 08/07/22 10:13:00 EST, Height [...] Team Personnel Name: Bita Anderson NP Position: [facility] PCO Associate Professional Member Role: PCP Address: Address: [address] [place] [address]- Care Team Related Persons Name: ISAIAH WOLFF Address: home [address] [place] [id number]
--- OUTSIDE RECORDS SUMMARY | 2024-03-17 20:04 | XMS_ITS | Continuity of Care Document ---
Author Organization [facility] Address [address] [place] [address]- Care Team Providers Care Executive Housekeeper Name Role Phone Justin Bita WERNER Primary Care Physician [place] [facility] [place] 02/20/20 - 03/21/20 [facility] Adult [address] [place] [address]- [facility] Allergies, Adverse Reactions, Alerts Substance Reaction Severity Status NKA Active Immunizations Given and Recorded Vaccine Date Status Refusal Reason influenza virus vaccine, inactivated 04/12/17 Kevin rded tetanus/diphtheria/pertussis, acel(Tdap) 09/22/14 Given Medications FLUoxetine 20 mg oral capsule 60 mg, 3, capsule, By Mouth, Daily, # 270 capsule, Refills 0, Tot. Refills 0, Maintenance, 209:15:00 EDT, Route to Pharmacy Electronically, [facility]/pharmacy #[id number], 170.5, cm, 01/19/20 7:04:00 EDT,Height Start [...]
--- OUTSIDE RECORDS SUMMARY | 2024-03-17 20:04 | XMS_ITS | Continuity of Care Document ---
Author Organization [facility] Fredi Address [address] [place] [address]- Care Team Providers Care Velocity Shooter Name Role Phone Bita Anderson NP Primary Care Physician [place] [facility] [place]20 - 11/28/20 [facility] Adult [address] [place] [address]- Encounter Diagnosis Anxiety and depression(Discharge Diagnosis) - 10/28/20 History of vitamin D deficiency(Discharge Diagnosis) - 10/28/20 Attending Physician: Bita Anderson NP Allergies, Adverse [...] 10/14/20 11:41:00 EDT, Route to Pharmacy Electronically, [facility]/pharmacy #[id number], 170.5, cm, 09/24/20 9:20:00 EDT, Height [...] Effective Dates Health Status Clinical Service Informant Anxiety and depression Discharge Diagnosis 10/28/20 History of vitamin D deficiency Discharge Diagnosis 10/28/20 Social History Social History Type Response Smoking Status Never smoker; Tobacc o user in household: No entered on: 01/14/14 Sex
--- OUTSIDE RECORDS SUMMARY | 2024-03-17 20:04 | XMS_ITS | Continuity of Care Document ---
Author Organization [facility] Address [address] [place] [address]- Care Team Providers Care Management Liaison Name Role Phone Justin Bita WERNER Primary Care Physician Encounter [facility] [place] Date(s): 02/17/20 - 03/18/20 [facility] Adult [address] [place] [address]- [facility] Allergies, Adverse Reactions, Alerts Substance Reaction Severity Status NKA Active Immunizations Given and Recorded Vaccine Date Status Refusal Reason influenza virus vaccine, inactivated 04/12/17 Kevin rded tetanus/diphtheria/pertussis, acel(Tdap) 09/22/14 Given Medications FLUoxetine 20 mg oral capsule 60 mg, 3, capsule, By Mouth, Daily, # 270 capsule, Refills 0, Tot. Refills 0, Maintenance, 209:15:00 EDT, Route to Pharmacy Electronically, [facility]/pharmacy #[id number], 170.5, cm, 01/19/20 7:04:00 EDT,Height [...]
--- OUTSIDE RECORDS SUMMARY | 2024-03-17 20:04 | XMS_ITS | Continuity of Care Document ---
Author Organization [facility] Fredi Address [address] [place] [address]- Care Team Providers Care Seam Taper Machine Name Role Phone Justin FIXED ROUTE OPERATOR, Bita Swift Primary Care Physician [phone] Encounter [facility] Date(s): 09/06/22 - 10/06/22 [facility] Adult [address] [place] [address]- Allergies, Adverse Reactions, Alerts No Known Allergies Immunizations Given and Recorded Vaccine Date Status Refusal Reason [id number] 12y+ bivalent booster vax 1 08/07/22 Given influenza virus vaccine, inactivated 2 08/07/22 Gi otf influenza virus vaccine, inactivated 04/12/17 Kevin rded SARS-CoV-2 (COVID-19) mRNA BNT-162b2 vac 10/31/20 Recorded SARS-CoV-2 (COVID-19) mRNA BNT-162b2 vac 10/08/20 Recorded tetanus/diphtheria/pertussis, acel(Tdap) 09/22/14 Given 1Result Comment: COVID [facility]#[id number] 2Result Comment: Flu [facility]#[id number] Medications FLUoxetine 20 mg oral capsule 60 mg, 3, capsule, By Mouth, Daily, for 90 days, # 270 capsule, Refills 3, Tot. Refills 3, Acute 08/06/23 12:13:00 EST, 08/11/22 12:13:00 EST, Route to Pharmacy Electronically, [facility]/pharmacy #[id number], 172.3, cm, 08/07/22 10:13:00 EST, Height Start Date: 08/11/22 Stop Date: 08/06/23 Status: Ordered Multivitamin Daily, 0 Refills, Maintenance, [...] Associate Professional Member Role: PCP Address: Address: [address] [place] [phone]- Care Team Related Persons Name: ISAIAH WOLFF Address: home [address] [place] [address]
--- OUTSIDE RECORDS SUMMARY | 2024-03-17 20:04 | XMS_ITS | Continuity of Care Document ---
Author Organization [facility] Fredi Address [address] [place] [address]- Care Team Providers Care Injection Operator Name Role Phone Justin ALPHONSO, Bita Swift Primary Care Physician [place] [facility] [place] 12/05/20 [facility] Adult [address] [place] [address]- Attending Physician: Admtr, Ar8 Admitting Physician: Admtr, [...] 10/14/20 11:41:00 EDT, Route to Pharmacy Electronically, [facility]/pharmacy #[id number], 170.5, cm, 09/24/20 9:20:00 EDT, Height Start Date: 10/14/20 Stop Date: 01/12/21 Status: Ordered Wellbutrin XL 150 mg/24 hours oral tablet, extended release 1 tablet = 150 mg, By Mouth, Every 24 hours, # 90 tablet, 3 Refills, Maintenance, 01/19/20 7:17:00 EDT, ER Tablet, [facility]/pharmacy #[id number], 170.5, cm, 01/19/20 7:04:00 EDT, [...]
--- OUTSIDE RECORDS SUMMARY | 2024-03-17 20:04 | XMS_ITS | Continuity of Care Document ---
Author Organization [facility] Fredi Address [address] [place] [address]- Care Team Providers Care Ebd Teacher Name Role Phone Justin ALPHONSO, Bita Swift Primary Care Physician [place] [facility] [place]20 - 11/27/20 [facility] Adult [address] [place] [address]- Allergies, Adverse Reactions, Alerts Substance Reaction Severity [...] 10/14/20 11:41:00 EDT, Route to Pharmacy Electronically, [facility]/pharmacy #[id number], 170.5, cm, 09/24/20 9:20:00 EDT, Height Start Date: 10/14/20 Stop Date: 01/12/21 Status: Ordered Wellbutrin XL 150 mg/24 hours oral tablet, extended release 1 tablet = 150 mg, By Mouth, Every 24 hours, # 90 tablet, 3 Refills, Maintenance, 01/19/20 7:17:00 EDT, ER Tablet, [facility]/pharmacy #[id number], 170.5, cm, 01/19/20 7:04:00 EDT, [...]
--- OUTSIDE RECORDS SUMMARY | 2024-03-17 20:04 | XMS_ITS | Continuity of Care Document ---
Author Organization [facility] Fredi Address [address] [place] [address]- Care Team Providers Care Strategic Consultant Name Role Phone Justin SHOVEL MECHANIC, Bita Swift Primary Care Physician [phone] Encounter [facility] Date(s): 09/06/22 - 10/06/22 [facility] Adult [address] [place] [address]- Allergies, Adverse Reactions, Alerts No Known Allergies Immunizations Given and Recorded Vaccine Date Status Refusal Reason [id number] 12y+ bivalent booster vax 1 08/07/22 Given influenza virus vaccine, inactivated 2 08/07/22 Gi otf influenza virus vaccine, inactivated 04/12/17 Kevin rded SARS-CoV-2 (COVID-19) mRNA BNT-162b2 vac 10/31/20 Recorded SARS-CoV-2 (COVID-19) mRNA BNT-162b2 vac 10/08/20 Recorded tetanus/diphtheria/pertussis, acel(Tdap) 09/22/14 Given 1Result Comment: COVID [facility]#[id number] 2Result Comment: Flu [facility]#[id number] Medications FLUoxetine 20 mg oral capsule 60 mg, 3, capsule, By Mouth, Daily, for 90 days, # 270 capsule, Refills 3, Tot. Refills 3, Acute 08/06/23 12:13:00 EST, 08/11/22 12:13:00 EST, Route to Pharmacy Electronically, [facility]/pharmacy #[id number], 172.3, cm, 08/07/22 10:13:00 EST, [...] Associate Professional Member Role: PCP Address: Address: [address] [place] [address]- Care Team Related Persons Name: ISAIAH WOLFF Address: home [address] [place] [id number]
--- OUTSIDE RECORDS SUMMARY | 2024-03-17 20:04 | XMS_ITS | Continuity of Care Document ---
Author Organization [facility] Fred[facility] Address [address] [place] [address]- Care Team Providers Care Associate Professor Of Library Science Name Role Phone Justin BRICKMASON SUPERVISOR, Bita Swift Primary Care Physician [phone] Encounter [facility] Date(s): 08/08/22 - 09/07/22 [facility] Adult [address] [place] [address]- Allergies, Adverse Reactions, Alerts No Known Allergies Immunizations Given and Recorded Vaccine Date Status Refusal Reason [id number] 12y+ bivalent booster vax 1 08/07/22 Given influenza virus vaccine, inactivated 2 08/07/22 Gi otf influenza virus vaccine, inactivated 04/12/17 Kevin rded SARS-CoV-2 (COVID-19) mRNA BNT-162b2 vac 10/31/20 Recorded SARS-CoV-2 (COVID-19) mRNA BNT-162b2 vac 10/08/20 Recorded tetanus/diphtheria/pertussis, acel(Tdap) 09/22/14 Given 1Result Comment: COVID [facility]#[id number] 2Result Comment: Flu [facility]#[id number] Medications FLUoxetine 20 mg oral capsule 60 mg, 3, capsule, By Mouth, Daily, for 90 days, # 270 capsule, Refills 3, Tot. Refills 3, Acute 08/06/23 12:13:00 EST, 08/11/22 12:13:00 EST, Route to Pharmacy Electronically, [facility]/pharmacy #[id number], 172.3, cm, 08/07/22 10:13:00 EST, Height [...] Associate Professional Member Role: PCP Address: Address: [address] [place] [address]- Care Team Related Persons Name: ISAIAH WOLFF Address: home [address] [place] [address]
--- OUTSIDE RECORDS SUMMARY | 2024-03-17 20:04 | XMS_ITS | Continuity of Care Document ---
Author Organization [facility] Address [address] [place] [address]- Care Team Providers Care Sawmill Or Timber Yard Worker Name Role Phone Justin Bita WERNER Primary Care Physician Encounter [facility] Date(s): 03/25/21 - 04/24/21 [facility] Adult [address] [place] [address]- Attending Physician: Admtr, Ar8 Admitting Physician: Admtr, Ar8 Referring Physician: Admtr, Ar8 Allergies, Adverse Reactions, Alerts Substance Reaction Severity Status NKA Active Immunizations Given and Recorded Vaccine Date Status Refusal Reason SARS-CoV-2 (COVID-19) mRNA BNT-162b2 vac 10/31/20 Recorded SARS-CoV-2 (COVID-19) mRNA BNT-162b2 vac 10/08/20 Recorded influenza virus vaccine, inactivated 04/12/17 Kevin rded tetanus/diphtheria/pertussis, acel(Tdap) 09/22/14 Given Problem List Condition Effective Dates Status Health Status Inform ant Overweight (BMI 25.0-29.9)(Confirmed) Active History of vitamin D deficiency(Confirmed) Active Anxiety and depression(Confirmed) Active Social History Social History Type Response Smoking Status Never smoker; Tobacc o user in household: No entered on: 01/14/14 Sex
--- OUTSIDE RECORDS SUMMARY | 2024-03-17 20:04 | XMS_ITS | Continuity of Care Document ---
Author Organization [facility] Fred[facility] Address [address] [place] [address]- Care Team Providers Care Bike Designer Name Role Phone Justin ALPHONSO, Bita Swift Primary Care Physician [phone] Encounter [facility] [place] Date(s): 10/28/20 - 11/27/20 [facility] Adult [address] [place] [address]- Allergies, Adverse Reactions, Alerts Substance Reaction Severity [...] Route to Pharmacy Electronically, [facility]/pharmacy #[id number], 170.5, cm, 09/24/20 9:20:00 EDT, Height Start Date: 10/14/20 Stop Date: 01/12/21 Status: Ordered Wellbutrin XL 150 mg/24 hours oral tablet, extended release 1 tablet = 150 mg, By Mouth, Every 24 hours, # 90 tablet, 3 Refills, Maintenance, 01/19/20 7:17:00 EDT, ER Tablet, [facility]/pharmacy #[id number], 170.5, cm, 01/19/20 7:04:00 EDT, [...]
--- OUTSIDE RECORDS SUMMARY | 2024-03-17 20:04 | XMS_ITS | Continuity of Care Document ---
Author Organization [facility] Fred[facility] Address [address] [place] [address]- Care Team Providers Care Cardiology Technologist Name Role Phone Justin Bita WERNER Primary Care Physician En[place] [facility] [place] Date(s): 01/19/20 - 02/18/20 [facility] Adult [address] [place] [address]- [facility] Attending Physician: Admtr, Ar8 Admitting Physician: Admtr, [...]
--- OUTSIDE RECORDS SUMMARY | 2024-03-17 20:04 | XMS_ITS | Continuity of Care Document ---
Author Organization [facility] Address [address] [place] [address]- Care Team Providers Care Clerk Rating Name Role Phone Justin ALPHONSO, Bita Swift Primary Care Physician [phone] En[place] [facility] [place](s): 11/15/20 - 12/15/20 [facility] Adult [address] [place] [address]- Allergies, Adverse Reactions, Alerts Substance Reaction Severity [...] 10/14/20 11:41:00 EDT, Route to Pharmacy Electronically, [facility]/pharmacy #[id number], 170.5, cm, 09/24/20 9:20:00 EDT, Height Start Date: 10/14/20 Stop Date: 01/12/21 Status: Ordered Wellbutrin XL 150 mg/24 hours oral tablet, extended release 1 tablet = 150 mg, By Mouth, Every 24 hours, # 90 tablet, 3 Refills, Maintenance, 01/19/20 7:17:00 EDT, ER Tablet, [facility]/pharmacy #[id number], 170.5, cm, 01/19/20 7:04:00 [...]
--- OUTSIDE RECORDS SUMMARY | 2024-03-17 20:05 | XMS_ITS | Continuity of Care Document ---
Author Organization [facility] Fred[facility] Address [address] [place] [address]- Care Team Providers Care Radioisotope Technician Name Role Phone Justin ALPHONSO, Bita wSift Primary Care Physician En[place] [facility] [place] Date(s): 10/14/20 - 11/13/20 [facility] Adult [address] [place] [address]- Allergies, Adverse Reactions, Alerts Substance Reaction Severity [...] 10/14/20 11:41:00 EDT, Route to Pharmacy Electronically, [facility]/pharmacy #[id number], 170.5, cm, 09/24/20 9:20:00 EDT, Height Start Date: 10/14/20 Stop Date: 01/12/21 Status: Ordered Wellbutrin XL 150 mg/24 hours oral tablet, extended release 1 tablet = 150 mg, By Mouth, Every 24 hours, # 90 tablet, 3 Refills, Maintenance, 01/19/20 7:17:00 EDT, ER Tablet, [facility]/pharmacy #[id number], 170.5, cm, 01/19/20 7:04:00 EDT, [...]
--- OUTSIDE RECORDS SUMMARY | 2024-03-17 20:05 | XMS_ITS | Continuity of Care Document ---
Author Organization [facility] Cristopher Fredi Address [address] [place] [address]- Care Team Providers Care Foundry Supervisor Name Role Phone Justin SPORTS BROADCASTER, Bita Swift Primary Care Physician Encounter [facility] Date(s): 11/13/23 - 12/13/23 [facility] Adult [address] [place] [address]- Allergies, Adverse Reactions, Alerts No Known Allergies Immunizations Given and Recorded Vaccine Date Status Refusal Reason [id number] 12y+ bivalent booster vax 1 08/07/22 Given influenza virus vaccine, inactivated 2 08/07/22 Gi otf influenza virus vaccine, inactivated 04/12/17 Kevin rded SARS-CoV-2 (COVID-19) mRNA BNT-162b2 vac 10/31/20 Recorded SARS-CoV-2 (COVID-19) mRNA BNT-162b2 vac 10/08/20 Recorded tetanus/diphtheria/pertussis, acel(Tdap) 09/22/14 Given 1Result Comment: COVID [facility]#[id number] 2Result Comment: Flu [facility]#[id number] Medications buPROPion 150 mg/24 hours (XL) oral tablet, extended release 1 tablet = 150 mg, By Mouth, Daily, # 90 tablet, 1 Refills, Maintenance, 08/08/23 10:30:00 EST, [facility] #[id number], 1 tablet By Mouth Daily,x90 days, 170.6, cm, 08/08/23 10:18:00 EST, Height Start Date: 08/08/23 Stop Date: 02/04/24 Status: Ordered FLUoxetine 20 mg oral capsule 60 mg, 3, capsule, By Mouth, Daily, # 90 capsule, Refills 2, Tot. Refills 2, Maintenance, 11/14/23 12:00:00 EDT, Route to Pharmacy Electronically, [facility] #[id number], 170.6, cm, 08/08/23 10:40:00 EST, Height Start Date: 11/14/23 Status: Ordered Multivitamin Daily, 0 Refills, Maintenance, [...] Team Personnel Name: Bita Anderson NP Position: [facility] PCO Associate Professional Member Role: PCP Address: Address: [address] [place] [address]- Care Team Related Persons Name: ISAIAH WOLFF Address: home [address] [place] [address]
--- OUTSIDE RECORDS SUMMARY | 2024-03-17 20:05 | XMS_ITS | Continuity of Care Document ---
Author Organization [facility] Fredi Address [address] [place] [address]- Care Team Providers Care Land Measurer Name Role Phone Bita Anderson NP Primary Care Physician [phone] Encounter [facility] [place] Date(s): 11/05/20 - 11/12/20 [facility] Adult [address] [place] [address]- Encounter Diagnosis Anxiety and depression(Discharge Diagnosis) - 11/05/20 Attending Physician: Bita Anderson NP Allergies, Adverse [...] 10/14/20 11:41:00 EDT, Route to Pharmacy Electronically, [facility]/pharmacy #[id number], 170.5, cm, 09/24/20 9:20:00 EDT, [...] Service Informant Anxiety and depression Discharge Diagnosis 11/05/20 Vital Signs Most recent to oldest [Reference Range]: 1 Height 170.5 cm (11/05/20 2:26 PM) Social History Social History Type Response Smoking Status Never smoker; Tobacc o user in household: No entered on: 01/14/14 Sex
--- OUTSIDE RECORDS SUMMARY | 2024-03-17 20:05 | XMS_ITS | Continuity of Care Document ---
Author Organization [facility] Fredi Address [address] [place] [address]- Care Team Providers Care Animal Behaviorist Name Role Phone Justin TELETYPESETTER OPERATOR, Bita Swfit Primary Care Physician Encounter [facility] [place] Date(s): 12/03/22 - 01/02/23 [facility] Adult [address] [place] [address]- Allergies, Adverse Reactions, Alerts No Known Allergies Immunizations Given and Recorded Vaccine Date Status Refusal Reason [id number] 12y+ bivalent booster vax 1 08/07/22 Given influenza virus vaccine, inactivated 2 08/07/22 Gi otf influenza virus vaccine, inactivated 04/12/17 Kevin rded SARS-CoV-2 (COVID-19) mRNA BNT-162b2 vac 10/31/20 Recorded SARS-CoV-2 (COVID-19) mRNA BNT-162b2 vac 10/08/20 Recorded tetanus/diphtheria/pertussis, acel(Tdap) 09/22/14 Given 1Result Comment: COVID [facility]#[id number] 2Result Comment: Flu [facility]#93092-334-93 Medications buPROPion 150 mg/24 hours (XL) oral tablet, extended release See Instructions, TAKE 1 TABLET BY MOUTH EVERY DAY FOR 90 DAYS, # 30 tablet, 2 Refills, Maintenance, 10/10/22 15:28:00 EDT, [id number], 30, TAKE 1 TABLET BY MOUTH EVERY DAY FOR 90 DAYS, 172.3, cm, 08/07/22 10:13:00 EST, Height Start Date: 10/10/22 Status: Ordered FLUoxetine 20 mg oral capsule 60 mg, 3, capsule, By Mouth, Daily, for 90 days, # 270 capsule, Refills 3, Tot. Refills 3, Acute 08/06/23 12:13:00 EST, 08/11/22 12:13:00 EST, Route to Pharmacy Electronically, [facility]/pharmacy #[id number], 172.3, cm, 08/07/22 10:13:00 EST, Height Start Date: 08/11/22 Stop Date: 08/06/23 Status: Ordered Multivitamin Daily, 0 Refills, Maintenance, 05/10/21 8:15:00 EST Start Date: 05/10/21 Status: Ordered Vitamin D3 5000 intl units oral tablet 1 tablet = 125 mcg, By Mouth, Daily, # 90 tablet, 3 Refills, Maintenance, 08/08/22 6:58:00 EST, Tablet, [facility]/pharmacy #[id number], 172.3, cm, 08/07/22 10:13:00 EST, [...] Associate Professional Member Role: PCP Address: Address: [address] [place] [address]- Care Team Related Persons Name: ISAIAH WOLFF Address: home [address] [place] [address]
--- OUTSIDE RECORDS SUMMARY | 2024-03-17 20:05 | XMS_ITS | Continuity of Care Document ---
Author Organization [facility] Cristopher Fredi Address [address] [place] [address]- Care Team Providers Care Director Biomedical Engineering Name Role Phone Bita Anderson NP Primary Care Physician [phone] [place] [facility] 08/07/22 - 08/14/22 [facility] Adult [address] [place] [address]- Encounter Diagnosis Annual physical exam(Discharge Diagnosis) - 08/07/22 Anxiety and depression(Discharge Diagnosis) - 08/07/22 Overweight (BMI 25.0-29.9)(Discharge Diagnosis) - 08/07/22 Attending Physician: Bita Anderson NP Allergies, Adverse Reactions, Alerts No Known Allergies Immunizations Given and Recorded Vaccine Date Status Refusal Reason [id number] 12y+ bivalent booster vax 1 08/07/22 Given influenza virus vaccine, inactivated 2 08/07/22 Gi otf influenza virus vaccine, inactivated 04/12/17 Kevin rded SARS-CoV-2 (COVID-19) mRNA BNT-162b2 vac 10/31/20 Recorded SARS-CoV-2 (COVID-19) mRNA BNT-162b2 vac 10/08/20 Recorded tetanus/diphtheria/pertussis, acel(Tdap) 09/22/14 Given 1Result Comment: COVID [facility]#[id number] 2Result Comment: Flu [facility]#47077-083-09 Medications FLUoxetine 20 mg oral capsule 60 mg, 3, capsule, By Mouth, Daily, for 90 days, # 270 capsule, Refills 3, Tot. Refills 3, Acute 08/06/23 12:13:00 EST, 08/11/22 12:13:00 EST, Route to Pharmacy Electronically, [facility]/pharmacy #[id number], 172.3, cm, [...] Service Informant Annual physical exam Discharge Diagnosis 08/07/22 Anxiety and depression Discharge Diagnosis 08/07/22 Overweight (BMI 25.0-29.9) Discharge Diagnosis 08/07/22 Vital Signs Most recent to oldest [Reference Range]: 1 Height 172.3 cm (08/07/22 10:13 AM) Weight 87.9 kg (08/07/22 10:13 AM) Oxygen Saturation [94-100 %] 98 % (08/07/22 10:13 AM) Pulse Rate [55-90 bpm] 65 bpm (08/07/22 10:13 AM) Body Mass Index [18.5-24.99 kg/m2] 29.61 kg/m2 *H* (08/07/22 10:13 AM) Blood Pressure [90-138/55-84 mm Hg] 108/ 78mm Hg (08/07/22 10:13 AM) Respiratory Rate [16-30 br/min] 16 br/mi n (08/07/22 10:13 AM) Temperature [96.8-100.4 DegF] 98.1 DegF (08/07/22 10:13 AM) Mode of Delivery (Oxygen) Room air (08/07/22 10:13 AM) Blood pressure sites Arm, left (08/07/22 10:13 AM) Temperature Route Oral (08/07/22 10:13 AM) Weight Obtained Via Standing scale (08/07/22 10:13 AM) Social History Social History Type Response Smoking Status Never smoker; Tobacc o user in household: No entered on: 01/14/14 Sex Note * Ronit Lozano: PERFORM, SIGN, VERIFY Event Display: Patient Education/Instruction Authored Date: [id number] [facility] *BMP So Cristopher Marquessmita Clinical Summary Name TIFFANIE CHAVEZ Age 32 Years 1990 PCP Bita Anderson NP PCP Visit Date 08/07/2022 10:10:00 Additional Instructions: Scheduled Appointments?? Future Appointments ?No Future Appointments Scheduled Follow-Up Instructions ?? With: Address: When: Bita Anderson NP In 1 year Diagnosis Other specified anxiety disorders; Encounter for general adult medical examination without abnormalfindings Medications: Please continue your medications until treatment is completed or stopped by your provider. Discuss any questions related to medications with your provider. Medications to Continue Taking That Have Changed These medications were not printed or sent to your pharmacy - Fluoxetine (FLUoxetine 20 mg oral capsule) 3 capsule Oral Daily for 30 Days. Refills: 0. Next Dose: Medications to Continue with No Changes These medications were not printed or sent to your pharmacy Multivitamin Daily. Next Dose: Allergy Info:?? NKA Medications Given This Visit Medication Dose Route influenza virus vaccine, inactivated (influenza virus, inactivated vacc) 0.5 mL Intramuscular [id number] 12y+ bivalent booster vax ([place]-[employer]NTech COVID-19 (12y+) Bivalent Booster vacc) 0.3 mL Intramuscular Future Orders ?Vitamin D 25 Hydroxy Level? Order Date:08/07/22?- Complete on or after?08/07/22 ?Comprehensive Metabolic Panel? Order Date:08/07/22?- Complete on or after?08/07/22 ?Hepatitis C Ab? Order Date:08/07/22?- Complete on or after?08/07/22 ?Direct LDL? Order Date:08/07/22?- Complete on or after?08/07/22 Vital Signs Height 172.3 cm Weight 87.9 kg BMI 29.61 kg/m2 Blood Pressure 108 mm Hg/78 mm Hg Temperature 98.1 DegF Pulse Rate 65 bpm Respiratory Rate 16 br/min 02 Sat Mode of Delivery 98 %/Room air You can now view a summary of your hospital visit from the comfort of your home through a free online portal called [employer]. [employer] is a website that allows you to securely view your medical information including discharge summary, medications and follow-up visits. ??You can alsosend a secure electronic message to your doctor???s office to request appointments, renew medications or just ask a question. You can enroll at [email or web address] or register during your next office [...] primary care provider, you may find a [facility] provider by calling [facility] [employer] at [phone]. For information about the plan of care [...] catch-up vaccines recommended by the CDC. ?? [id number] [employer]. [address] [place] [address], [place] [address]. All rights reserved. This information is not intended as a substitute for professional medical care. Always follow your healthcare professional's instructions. Patient Care team information Care Team Personnel Name: Bita Anderson NP Position: [facility] PCO Associate Professional Member Role: PCP Address: Address: [address] [place] [address]- Care Team Related Persons Name: ISAIAH WOLFF Address: home [address] [place] [address]
--- OUTSIDE RECORDS SUMMARY | 2024-03-17 20:05 | XMS_ITS | Continuity of Care Document ---
Author Organization [facility] Fredi Address [address] [place] [address]- Care Team Providers Care Card Runner Name Role Phone Justin ALPHONSO, Bita Swift Primary Care Physician [place] [facility] [place] 10[place]20 - 11/19/20 [facility] Adult [address] [place] [address]- Allergies, Adverse Reactions, Alerts Substance Reaction Severity [...] 10/14/20 11:41:00 EDT, Route to Pharmacy Electronically, [facility]/pharmacy #[id number], 170.5, cm, 09/24/20 9:20:00 EDT, Height Start Date: 10/14/20 Stop Date: 01/12/21 Status: Ordered Wellbutrin XL 150 mg/24 hours oral tablet, extended release 1 tablet = 150 mg, By Mouth, Every 24 hours, # 90 tablet, 3 Refills, Maintenance, 01/19/20 7:17:00 EDT, ER Tablet, [facility]/pharmacy #[id number], 170.5, cm, 01/19/20 7:04:00 EDT, Height Start Date: 01/19/20 Status: Ordered Problem List Condition Effective Dates Status Health Status Inform ant Overweight (BMI 25.0-29.9)(Confirmed) Active History of vitamin D deficiency(Confirmed) Active Anxiety and depression(Confirmed) Active Social History Social History Type Response Smoking Status Never smoker; Tobacc o user in household: No entered on: 01/14/14 Sex
--- OUTSIDE RECORDS SUMMARY | 2024-03-17 20:05 | XMS_ITS | Continuity of Care Document ---
Author Organization [facility] Fredi Address [address] [place] [address]- Care Team Providers Care Fisher Gill Net Name Role Phone Justin Bita WERNER Primary Care Physician [phone] En[place] [facility] [place] Date(s): 08/12/21 - 09/11/21 [facility] Adult [address] [place] [address]- Allergies, Adverse Reactions, Alerts No Known Allergies [...] Mouth, Every 24 hours, # 90 tablet, 0 Refills, Maintenance, 08/24/21 13:56:00EST, XL Tablet, [facility]/pharmacy #[id number], 1 tablet By Mouth Every 24 hours,x90 days, 170.5, cm, 05/10/21 8:02:00 EST, Height Start Date: 08/24/21 Stop Date: 11/22/21 Status: Ordered buPROPion 150 mg/24 hours (XL) oral tablet, extended release 1 tablet = 150 mg, By Mouth, Every 24 hours, for 90 days, # 90 tablet, 2 Refills, Hard Stop 02/04/22 8:17:00 EDT, 05/10/21 8:17:00 EST, XL Tablet, [facility]/pharmacy #[id number], 170.5, cm, 05/10/21 8:02:00 EST,Height Start Date: 05/10/21 Stop Date: 02/04/22 Status: Ordered FLUoxetine 20 mg oral capsule 60 mg, 3, capsule, By Mouth, Daily, # 270 capsule, Refills 1, Tot. Refills 1, Maintenance, 08/25/2214:43:00 EST, Route to Pharmacy Electronically, [facility]/pharmacy #[id number], 170.5, cm, 05/10/21 8:02:00 EST, Height Start Date: 08/25/21 Stop Date: 02/21/22 Status: Ordered FLUoxetine 20 mg oral capsule 60 mg, 3, capsule, By Mouth, Daily, for 90 days, # 270 capsule, Refills 2, Tot. Refills 2, Hard Stop 02/04/22 8:16:00 EDT, 05/10/21 8:16:00 EST, Route to Pharmacy Electronically, [facility]/pharmacy #[id number], 170.5, cm, 05/10/21 8:02:00 EST, Height Start [...]
--- OUTSIDE RECORDS SUMMARY | 2024-03-17 20:05 | XMS_ITS | Continuity of Care Document ---
Author Organization [facility] Fredi Address [address] [place] [address]- Care Team Providers Care Repair Service Dispatcher Name Role Phone Justin CTE TEACHER, Bita Swift Primary Care Physician [phone] [place] [facility] [place](s[place] 08/08/23 - 09/07/23 [facility] Adult [address] [place] [address]- Attending Physician: AdmJuan M [id number] Admitting Physician: AdmtrYisel Referring Physician: Admtr, Ar8 Allergies, Adverse Reactions, Alerts No Known Allergies Immunizations Given and Recorded Vaccine Date Status Refusal Reason [id number] 12y+ bivalent booster vax 1 08/07/22 Given influenza virus vaccine, inactivated 2 08/07/22 Gi otf influenza virus vaccine, inactivated 04/12/17 Kevin rded SARS-CoV-2 (COVID-19) mRNA BNT-162b2 vac 10/31/20 Recorded SARS-CoV-2 (COVID-19) mRNA BNT-162b2 vac 10/08/20 Recorded tetanus/diphtheria/pertussis, acel(Tdap) 09/22/14 Given 1Result Comment: COVID [facility]#[id number] 2Result Comment: Flu [facility]#[id number] Medications buPROPion 150 mg/24 hours (XL) oral tablet, extended release 1 tablet = 150 mg, By Mouth, Daily, # 90 tablet, 1 Refills, Maintenance, 08/08/23 10:30:00 EST, [facility] #[id number], 1 tablet By Mouth Daily,x90 days, 170.6, [...] Team Personnel Name: Bita Anderson NP Position: [facility] PCO Associate Professional Member Role: PCP Address: Address: [address] [place] [address]- Care Team Related Persons Name: ISAIAH WOLFF Address: home [address] [place] [address]
--- OUTSIDE RECORDS SUMMARY | 2024-03-17 20:05 | XMS_ITS | Continuity of Care Document ---
Author Organization [facility] Fredi Address [address] [place] [address]- Care Team Providers Care Field Services Manager Name Role Phone Justin ALPHONSO, Bita Swift Primary Care Physician [phone] [place] [facility] [place] Date(s): 10/29/20 - 11/28/20 [facility] Adult [address] [place] [address]- Allergies, Adverse Reactions, Alerts Substance Reaction Severity [...] 10/14/20 11:41:00 EDT, Route to Pharmacy Electronically, [facility]/pharmacy #[id number], 170.5, cm, 09/24/20 9:20:00 EDT, Height Start Date: 10/14/20 Stop Date: 01/12/21 Status: Ordered Wellbutrin XL 150 mg/24 hours oral tablet, extended release 1 tablet = 150 mg, By Mouth, Every 24 hours, # 90 tablet, 3 Refills, Maintenance, 01/19/20 7:17:00 EDT, ER Tablet, [facility]/pharmacy #[id number], 170.5, cm, 01/19/20 7:04:00 EDT, Height Start Date: 01/19/20 Status: Ordered Problem List Condition Effective Dates Status Health Status Inform ant Overweight (BMI 25.0-29.9)(Confirmed) Active History of vitamin D deficiency(Confirmed) Active Anxiety and depression(Confirmed) Active Social History Social History Type Response Smoking Status Never smoker; Tobacc o user in household: No entered on: 01/14/14 Sex
--- OUTSIDE RECORDS SUMMARY | 2024-03-17 20:05 | XMS_ITS | Continuity of Care Document ---
Author Organization [facility] Fredi Address [address] [place] [address]- Care Team Providers Care Is Consultant Name Role Phone Justin Bita WERNER Primary Care Physician [place] [facility] [place] Date(s): 06/30/20 - 07/30/20 [facility] Adult [address] [place] [address]- Allergies, Adverse Reactions, Alerts Substance Reaction Severity Status NKA Active Immunizations Given and Recorded Vaccine Date Status Refusal Reason influenza virus vaccine, inactivated 04/12/17 Kevin rded tetanus/diphtheria/pertussis, acel(Tdap) 09/22/14 Given Medications FLUoxetine 20 mg oral capsule 3, capsule, By Mouth, Daily, # 270 capsule, Refills 1, Tot. Refills 0, Maintenance, 05/10/20 9:55:00 EST, Route to Pharmacy Electronically, [id number], 170.5, cm, 01/19/20 7:04:00 EDT, Height Start [...]
--- OUTSIDE RECORDS SUMMARY | 2024-03-17 20:05 | XMS_ITS | Continuity of Care Document ---
Author Organization [facility] Cristopher Fredi Address [address] [place] [address]- Care Team Providers Care Pension Fund Manager Name Role Phone Bita Anderson NP Primary Care Physician [place] [facility] [place] 05/17/21 [facility] Adult [address] [place] [address]- Encounter Diagnosis Annual physical exam(Discharge Diagnosis) - 05/08/21 Overweight (BMI 25.0-29.9)(Discharge Diagnosis) - 05/08/21 Anxiety and depression(Discharge Diagnosis) - 05/08/21 History of vitamin D deficiency(Discharge Diagnosis) - 05/08/21 Attending Physician: Bita Anderson NP Allergies, Adverse [...] Maintenance, 218:16:00 EST, Route to Pharmacy Electronically, [facility]/pharmacy #[id number], 170.5, cm, 05/10/21 8:02:00 EST,Height Start [...] Service Informant Annual physical exam Discharge Diagnosis 05/08/21 Overweight (BMI 25.0-29.9) Discharge Diagnosis 05/08/21 Anxiety and depression Discharge Diagnosis 05/08/21 History of vitamin D deficiency Discharge Diagnosis 05/08/21 Vital Signs Most recent to oldest [Reference Range]: 1 Height 170.5 cm (05/10/21 8:02 AM) Weight 80.3 kg (05/10/21 8:02 AM) Oxygen Saturation [94-100 %] 98 % (05/10/21 8:02 AM) Pulse Rate [55-90 bpm] 67 bpm (05/10/21 8:02 AM) Body Mass Index [18.5-24.99] 27.62 *H* (05/10/21 8:02 AM) Blood Pressure [90-138/55-84 mm Hg] 120/ 68mm Hg (05/10/21 8:02 AM) Respiratory Rate [16-30 br/min] 14 br/mi n *L* (05/10/21 8:02 AM) Temperature [96.8-100.4 DegF] 97.8 DegF (05/10/21 8:02 AM) Mode of Delivery (Oxygen) Room air (05/10/21 8:02 AM) Blood pressure sites Arm, left (05/10/21 8:02 AM) Temperature Route Oral (05/10/21 8:02 AM) Weight Obtained Via Standing scale (05/10/21 8:02 AM) Social History Social History Type Response Smoking Status Never smoker; Tobacc o user in household: No entered on: 01/14/14 Sex
--- OUTSIDE RECORDS SUMMARY | 2024-03-17 20:05 | XMS_ITS | Continuity of Care Document ---
Author Organization [facility] Cristopher Fredi Address [address] [place] [address]- Care Team Providers Care Putty Mixer And Applier Name Role Phone Justin DAIRY FARMER, Bita Swift Primary Care Physician [phone] En[place] [facility] [place] Date(s): 06/09/19 - 07/10/19 [facility] Adult [address] [place] [address]- [facility] Attending Physician: Not on Staff, Attending MD Allergies, Adverse Reactions, Alerts Substance Reaction Severity [...]
--- OUTSIDE RECORDS SUMMARY | 2024-03-17 20:05 | XMS_ITS | Continuity of Care Document ---
Author Organization [facility] Address [address] [place] [address]- Care Team Providers Care Camera Assembler Name Role Phone Justin Bita WERNER Primary Care Physician [phone] [place] [facility] [place] - 02/18/20 [facility] Adult [address] [place] [address]- [facility] Allergies, Adverse Reactions, Alerts Substance Reaction Severity [...]
--- OUTSIDE RECORDS SUMMARY | 2024-03-17 20:05 | XMS_ITS | Continuity of Care Document ---
Author Organization [facility] Fredi Address [address] [place] [address]- Care Team Providers Care Swine Extension Field Specialist Name Role Phone Justin AUTO SERVICE STATION ATTENDANT, Bita Swift Primary Care Physician [phone] [place] [facility] [place]): [place]/24/20 - 10/01/20 [facility] Adult [address] [place] [address]- Encounter Diagnosis Suspected COVID-19 virus infection(Discharge Diagnosis) - 09/24/20 Attending Physician: Daisy Encinas NP Allergies, Adverse Reactions, Alerts Substance Reaction Severity Status NKA Active Immunizations Given and Recorded Vaccine Date Status Refusal Reason influenza virus vaccine, inactivated 04/12/17 Kevin rded tetanus/diphtheria/pertussis, acel(Tdap) 09/22/14 Given Medications FLUoxetine 20 mg oral capsule 3, capsule, By Mouth, Daily, # 270 capsule, Refills 1, Tot. Refills 0, Maintenance, 05/10/20 9:55:00 EST, Route to Pharmacy Electronically, [facility], 170.5, cm, 01/19/20 7:04:00 EDT, Height Start Date: 05/10/20 Status: Ordered Wellbutrin XL 150 mg/24 hours oral tablet, extended release 1 tablet = 150 mg, By Mouth, Every 24 hours, # 90 tablet, 3 Refills, Maintenance, 01/19/20 7:17:00 EDT, ER Tablet, [facility]/pharmacy #[id number], 170.5, cm, 01/19/20 7:04:00 EDT, Height Start Date: 01/19/20 Status: Ordered Problem List Condition Effective Dates Status Health Status Inform ant Overweight (BMI 25.0-29.9)(Confirmed) Active History of vitamin D deficiency(Confirmed) Active Anxiety and depression(Confirmed) Active Diagnosis Diagnosis Type Effective Dates Health Status Cl inical Service Informant Suspected COVID-19 virus infection Discharge Diagnosis 09/24/20 Vital Signs Most recent to oldest [Reference Range]: 1 Height 170.5 cm (09/24/20 9:20 AM) Social History Social History Type Response Smoking Status Never smoker; Tobacc o user in household: No entered on: 01/14/14 Sex
--- OUTSIDE RECORDS SUMMARY | 2024-03-17 20:05 | XMS_ITS | Continuity of Care Document ---
Author Organization [facility] Fredi Address [address] [place] [address]- Care Team Providers Care Burning Supervisor Name Role Phone Justin ALPHONSO, Bita Swift Primary Care Physician [phone] Encounter [facility] Date(s): 10/20/20 - 11/19/20 [facility] Adult [address] [place] [address]- Allergies, Adverse Reactions, Alerts Substance Reaction Severity [...] 10/14/20 11:41:00 EDT, Route to Pharmacy Electronically, [facility]/pharmacy #[id number], 170.5, cm, 09/24/20 9:20:00 EDT, Height Start Date: 10/14/20 Stop Date: 01/12/21 Status: Ordered Wellbutrin XL 150 mg/24 hours oral tablet, extended release 1 tablet = 150 mg, By Mouth, Every 24 hours, # 90 tablet, 3 Refills, Maintenance, 01/19/20 7:17:00 EDT, ER Tablet, [facility]/pharmacy #[id number], 170.5, cm, 01/19/20 7:04:00 EDT, Height Start Date: 01/19/20 Status: Ordered Problem List Condition Effective Dates Status Health Status Inform ant Overweight (BMI 25.0-29.9)(Confirmed) Active History of vitamin D deficiency(Confirmed) Active Anxiety and depression(Confirmed) Active Social History Social History Type Response Smoking Status Never smoker; Tobacc o user in household: No entered on: 01/14/14 Sex
[2024-03-17] MEDS: Morphine Sulfate 4 MG/ML CARTRIDGE IVPUSH (20:06)
[2024-03-17] MEDS: ondansetron HCL 4 MG/2 ML VIAL IVPUSH (20:06)
[2024-03-17 20:32] LABS: Alanine Aminotransferase 24 U/L (0-40); Albumin Level 4.7 g/dL (3.5-5.0); Alkaline Phosphatase 70 U/L (39-117); Anion Gap 17 (12-20); Aspartate Amino Transferase 22 U/L (5-37); Bilirubin Direct 0.2 mg/dL (0.0-0.5); Bilirubin Total 0.8 mg/dL (0.0-1.0); Blood Urea Nitrogen 11 mg/dL (9-16); Calcium 9.8 mg/dL (8.4-10.2); Carbon Dioxide 19 mmol/L (22-29); Chloride 107 mmol/L (96-108); Creatinine Clr Calc Pharmacy 76.3; Estimated Glomerular Filt Rate 57; Glucose Random 141 mg/dL (60-115); Lipase 14 U/L (8-78); Magnesium 1.9 mg/dL (1.6-2.6); Potassium 3.5 mmol/L (3.3-5.1); Sodium 139 mmol/L (135-145); Total Protein 7.7 g/dL (6.5-8.0)
[2024-03-17] MEDS: Metoclopramide HCl 10 MG/2 ML VIAL IVPUSH (20:49)
[2024-03-17] MEDS: diphenhydrAMINE HCL 50 MG/ML VIAL 25 MG IVPUSH (20:49)
[2024-03-17 20:56] LABS: Appearance Urine Clear; Color Urine Yellow; Glucose Urine UA Negative (Negative); Leukocyte Esterase Urine Negative (Negative); Nitrite Urine Negative (Negative); UMIC TRIGGER UACC YES; Urine Blood Large (3+) (Negative); Urine Ketones 40 mg/dL (Negative); Urine Protein Negative (Neg-Trace)
[2024-03-17 21:01] LABS: Bacteria Urine None Seen (None Seen); Hyaline Casts Urine 0-2 /LPF (0-2); RBC Urine >20 /HPF (0-2); Squamous Epithelial Cell Urine 0-2 /HPF (0-2); WBC Urine 0-5 /HPF (0-5)
[2024-03-17 21:15] LABS: Lactic Acid 2.2 mmol/L (0.5-2.0)
[2024-03-17 21:24] VITALS: BP 149/76; PULSE 62; RESP 16; TEMP 36.4; O2SAT 98
[2024-03-17] MEDS: cefTRIAXone sodium 1 GM in 0.9 % Sodium Chloride 50 ML IV (21:24)
[2024-03-17] MEDS: HYDROmorphone HCl 1 MG/ML SYRINGE IVPUSH (21:55)
[2024-03-17 21:57] VITALS: BP 162/89; PULSE 76; RESP 29; TEMP 36.7; O2SAT 96
[2024-03-17 22:16] VITALS: BP 169/88; PULSE 62; RESP 17; TEMP 36.6; O2SAT 98
[2024-03-17] MEDS: iohexoL 350 MG/ML 100 ML INFUS..BTL 85 ML IV (22:18)
[2024-03-17 22:38] VITALS: BP 143/93; PULSE 64; RESP 17; TEMP 36.6; O2SAT 98
[2024-03-17 22:53] LABS: Reflex Lactate? Lactic Acid Added
[2024-03-17 23:15] LABS: ~Lactic Acid-LAB USE ONLY 1.1 mmol/L (0.5-2.0)
[2024-03-18 01:39] VITALS: BP 143/93; PULSE 67; RESP 15; TEMP 36.7; O2SAT 98
[2024-03-18 01:49] VITALS: BP 143/93; PULSE 67; RESP 15; TEMP 36.7; O2SAT 98
== END 2024-03-18 01:50 | disposition home or self-care (01) ==
PROVIDERS: Emergency Provider Emergency Medicine; PCP Nurse Practitioner Family
DX: R10.31 Right lower quadrant pain (principal); N20.1 Calculus of ureter; E86.0 Dehydration; R11.10 Vomiting, unspecified; R00.1 Bradycardia, unspecified; R61 Generalized hyperhidrosis
CPT/HCPCS: 36415; 74177; 80048; 80076; 81001; 83605; 83690; 83735; 85025; 87040; 93005; 96361; 96374; 96375; 99285; J0696; J1170; J1200; J2270; J2405; J2765; Q9967

== ENCOUNTER 2024-04-23 08:06 | Outpatient (AMB) | payer OTHER, SELFPAY ==
--- NOTE | 2024-04-23 08:11 | MHC.OFFVIS ---
Intake Visit Reasons: ureteral stone Intake Note: New Patient presents for initial visit for uretral stone Urology Medications: none Blood Thinner: none Clinical Trial Manager Required: No Accompanied by: Self / Same As Patient Allergies No Known Allergies Allergy (Verified 04/23/24 08:41) Medication List - Last Reconciled 04/23/24 by SUSANNE Tolbert fluoxetine 60 mg PO DAILY HPI Comments Details: Emilia is a very pleasant 34 [address] old patient of Dr. Anderson. He presents to the office today as a new patient for nephrolithiasis. In discussion with the patient today he reports approximately 1 month ago seeking emergency room care for right lower abdominal pain he had been experiencing at which time a CT of the abdomen was ordered and performed. These results were reviewed with the patient today. The kidneys are normal in size, shape, and attenuation. There is right perinephric stranding. There is mild right hydronephrosis and hydroureter extending into the pelvis to the level of a 3.5-for mm distal right ureteric calculus. The bladder is unremarkable. He discusses pain he had been experiencing has since subsided. He reports completing prednisone and Flomax as prescribed by ER physician. He believes he passed his kidney stone. He currently denies any bothersome urinary issues or concerns. He denies urinary urgency, urinary frequency, incontinence, nocturia, hematuria, dysuria, foul smelling urine, changes to urinary stream, flank pain, fever, and or chills. He is happy with his current voiding parameters. We discussed at length potential causes of nephrolithiasis. He discusses his new job at a [employer] and [place]. When asked he denies any previous history of nephrolithiasis and or surgical intervention for nephrolithiasis. He otherwise denies any other issues or concerns at this time. [facility] Medical History No pertinent past medical history Social History Substance Use Type: Marijuana Review of Systems Const All systems reviewed & are unremarkable except as noted in HPI and below Physical Exam Const General: cooperative, healthy appearing, comfortable, no acute distress, well developed, alert and awake Orientation/consciousness: patient oriented x3 Limitations: no limitations HEENT Head: Yes normal to inspection, Yes normocephalic and Yes atraumatic Ears: hearing grossly normal bilaterally Eyes General: appearance normal, both eyes and all related structures Neck Neck: Yes normal visual inspection and Yes trachea midline Chest Chest palpation & inspection: normal inspection of the chest Resp Effort & Inspection: normal respiratory effort and able to speak in complete sentences Cardio Rate: regular rate GI Inspection: Yes normal to inspection General: Yes no CVA tenderness Back/Spine/Pelvis Back: no CVA tenderness Skin General skin exam: no rashes or lesions noted Neuro General: patient oriented x3 Extrem General: Yes normal to inspection Psych Appearance: grossly normal and well kempt Mental Status: mental status grossly normal Speech and movement: Normal speech and movement present and Clear speech present Affect: normal affect Attitude: cooperative Thought process: Normal thought process present Thought content: Normal thought content present Insight: Fair insight present (Psych) Judgement: Fair judgement present (Psych) Results AMB Urinalysis, Automated UA Leukoctes 0 Tracey/uL Last Edit by [employer] Elin on 04/23/24 08:20 UA Nitrite Last Edit by Pau Worthington on 04/23/24 08:20 UA Urobilinogen 0.2 mg/dL Last Edit by [employer] Elin on 04/23/24 08:20 UA Protein 15 mg/dL Last Edit by [employer] Elin on 04/23/24 08:20 UA pH 6.5 Last Edit by MagdyHiConversionaaron Worthington on 04/23/24 08:20 UA Blood 0 Holger/uL Last Edit by [employer] on 04/23/24 08:20 UA Specific Avilla 1.015 Last Edit by MagdyHiConversionaaron Worthington on 04/23/24 08:20 UA Ketone Last Edit by [employer] on 04/23/24 08:20 UA Bilirubin 0 mg/dL Last Edit by [employer] on 04/23/24 08:20 UA Glucose 0 mg/dL Last Edit by [employer] on 04/23/24 08:20 Results Reviewed Results Reviewed: Laboratory Last Values Urine pH (Auto) 6.5 04/23/24 08:13 Specific Avilla (Auto) 1.015 04/23/24 08:13 Urine Protein (Auto) 15 mg/dL 04/23/24 08:13 Glucose (UA)(Auto) 0 mg/dL 04/23/24 08:13 Urine Blood (Auto) 0 Holger/uL 04/23/24 08:13 Urine Bilirubin (Auto) 0 mg/dL 04/23/24 08:13 Urine Urobilinogen (Auto) 0.2 mg/dL 04/23/24 08:13 Leukocyte Esterase (Auto) 0 Tracey/uL 04/23/24 08:13 Date of Service: 03/17/24 EXAMINATION: CT ABDOMEN AND PELVIS WITH CONTRAST FINDINGS: LUNG BASES: The visualized lung bases are unremarkable. LIVER, GALLBLADDER, AND BILIARY TREE: The liver is normal in size, shape, and attenuation. No focal hepatic lesion or biliary ductal dilatation is present. A single small gallstone is noted within a nondistended gallbladder. PANCREAS: Unremarkable. SPLEEN: Unremarkable. ADRENAL GLANDS: Unremarkable. KIDNEYS AND URETERS: The kidneys are normal in size, shape, and attenuation. There is right perinephric stranding/fluid. There is mild right hydronephrosis and hydroureter extending into the pelvis to the level of a 3.5 to 4 mm distal right ureteric calculus. BLADDER: Unremarkable. GASTROINTESTINAL TRACT: The small and large bowel are unremarkable. The appendix is unremarkable. ABDOMINAL WALL: No significant hernia is appreciated. LYMPH NODES: Normal. VASCULAR: Unremarkable. PELVIC VISCERA: Unremarkable. OSSEOUS STRUCTURES: Unremarkable. IMPRESSION: 1. There is a 3.5 to 4 mm distal right ureteric calculus with associated mild right hydronephrosis and hydroureter. 2. Cholelithiasis. Assessment & Plan Assessment & Plan (1) Nephrolithiasis: Code(s): N20.0 - Calculus of kidney Category: Medical (2) Hydronephrosis concurrent with and due to calculi of kidney and ureter: Code(s): N13.2 - Hydronephrosis with renal and ureteral calculous obstruction Category: Medical Plan In office urinalysis results with the patient today; as noted above. Patient currently denies any bothersome urinary issues or concerns He reports be happy with current voiding parameters. Recent CT results reviewed with the patient today; as noted above. We discussed at length potential causes of nephrolithiasis. Patient reports believing he passed his stone will obtain renal ultrasound for further assessment evaluation. Discussed, educated, and stressed the importance of adequate hydration relation to nephrolithiasis as well as overall health and well-being. Discussed possible near future metabolic workup to include 24 hour urine collection and labs. Follow-up in 1-3 months with imaging to be completed prior; or sooner with any issues, concerns, and or questions. Orders: Orders US renal BI Today N20.0 - Calculus of kidney AMB Urinalysis Automated Today Z13.9 - Encounter for screening, unspecified Patient Instructions: The patient had an opportunity to ask questions regarding the treatment plan. All questions were answered. Physical exam, labs, and imaging were discussed and reviewed in detail. As well as risks, benefits, and discussion of treatment choices. No major barriers to understanding were identified. The patient expressed understanding and agreement with the above treatment plan. The patient was made aware they should contact our office by phone for worsening of their current condition, the appearance of new symptoms, or with any questions or concerns. Compliance is encouraged with any medications and follow up testing that is ordered. It is a privilege to be allowed the opportunity to participate in? your urological care.? Again, if you have any questions or concerns If you have any questions or concerns please do not hesitate to contact me. The office is [phone]. This note is constructed using voice recognition software. While every effort has been made to ensure accuracy ramp flight attendant errors may have been included. Yours sincerely, SUSANNE Tolbert Coding Level of Care Code New Pt Level 3 (22189) Diagnoses Nephrolithiasis N20.0 Hydronephrosis concurrent with and due to calculi of kidney and ureter N13.2
== END 2024-04-23 08:41 | disposition home or self-care (01) ==
PROVIDERS: PCP Nurse Practitioner Family; Visit Provider Nurse Practitioner Family
DX: N20.0 Calculus of kidney (principal); N13.2 Hydronephrosis with renal and ureteral calculous obstruction; Z13.9 Encounter for screening, unspecified
CPT/HCPCS: 99203

== ENCOUNTER → 2024-04-23 08:06 | Outpatient (BNVA) | payer OTHER, SELFPAY | PROVIDERS: PCP Nurse Practitioner Family; Visit Provider Nurse Practitioner Family | DX: N13.2 Hydronephrosis with renal and ureteral calculous obstruction (principal) | CPT/HCPCS: 81003 ==